=== PATIENT | female | born 1985 | race Caucasian/White ===

== ENCOUNTER 2018-04-30 09:08 | Emergency (ER) | payer SELFPAY ==
[2018-04-30 11:23] LABS: Urine Blood TRACE (NEG); Urine Glucose NEGATIVE (NEG); Urine Protein NEGATIVE (NEG)
[2018-04-30 11:23] LABS: Urine Bacteria <20 /HPF (<20); Urine Culture Reflex Order NOT NEEDED; Urine RBC <5 /HPF (NONE SEEN)
--- NOTE | 2018-04-30 11:46 | ER ---
Nurse's Notes [facility] Name: Lianna Paiz Age: 32 yrs Sex: Female : 1985 Arrival Date: 04/30/2018 Time: 09:11 Bed 17 Private MD: None, None Diagnosis: Pelvic pressure Presentation: 04/30 09:25 Presenting complaint: Patient states: Since I ended by period, My pelvis feels like ss it's bruised. Pt denies injury. Pt also states, "I know that maybe my control has malfunctioned, I was going to make an appointment, but I just came here." pt reports she has had her IUD in for five years. Transition of care: patient was not received from another setting of care. Onset of symptoms was April 28, 2018. Risk Assessment: Do you want to hurt yourself or someone else? Patient reports no desire to harm self or others. Initial Sepsis Screen: Does the patient meet any 2 criteria? No. Patient's initial sepsis screen is negative. Does the patient have a suspected source of infection? No. Patient's initial sepsis screen is negative. Care prior to arrival: None. 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 - Social history:: Smoking status: Patient uses tobacco products, smokes one-half pack cigarettes per day. - Ebola Screening: : Patient denies exposure to infectious person Patient denies travel to an Ebola-affected area in the 21 days before illness onset. Screenin:25 Abuse screen: Denies threats or abuse. Denies injuries from another. Nutritional sv screening: No deficits noted. Tuberculosis screening: No symptoms or risk factors identified. Fall Risk None identified. Assessment: 09:24 Reassessment: Pt attempted to provide urine sample, but was unsuccessful. ss 09:25 General: Appears in no apparent distress. uncomfortable, Behavior is calm, cooperative, sv appropriate for age. Pain: Complains of pain in pelvis Pain currently is 5 out of 10 on a pain scale. Is continuous. Neuro: Level of Consciousness is awake, alert, obeys commands, Oriented to person, place, time, situation, Moves all extremities. Full function Gait is steady, Speech is normal. Respiratory: Respiratory effort is even, unlabored, Respiratory pattern is regular, symmetrical. Derm: Skin is pink, warm \\T\\ dry. Musculoskeletal: Range of motion: intact in all extremities. 11:53 Reassessment: Patient appears in no apparent distress at this time. Patient and/or sv family updated on plan of care and expected duration. Pain level reassessed. Patient is alert, oriented x 3, equal unlabored respirations, skin warm/dry/pink. 12:19 Reassessment: Patient appears in no apparent distress at this time. No changes from previously documented assessment. Patient and/or family updated on plan of care and expected duration. Pain level reassessed. Patient is alert, oriented x 3, equal unlabored respirations, skin warm/dry/pink. Vital Signs: 09:27 BP 147 / 90; Pulse 81; Resp 16; Temp 98.2(TE); Pulse Ox 98% on R/A; Weight 68.04 kg; ss Height 5 ft. 0 in. (152.40 cm); Pain 5/10; 10:06 BP 146 / 95; Pulse 80; Resp 18; Pulse Ox 99% ; sv 11:46 BP 100 / 72; Pulse 71; Resp 18; Pulse Ox 98% ; sv 09:27 Body Mass Index 29.29 (68.04 kg, 152.40 cm) ED Course: 09:11 Patient arrived in ED. sb2 09:12 None, None is Private Physician. sb2 09:18 Ritu Goncalves [facility]-C [facility]. snw 09:18 Jakub Cardenas MD is Attending Physician. snw 09:20 Lula Galicia, GLEN is Primary Nurse. sv 09:25 Patient has correct armband on for positive identification. Bed in low position. Call sv light in reach. Side rails up X 1. Pulse ox on. NIBP on. Door closed. Head of bed elevated. 09:27 Triage completed. ss 09:27 Arm band placed on right wrist. ss 10:28 Urine collected: clean catch specimen, cloudy. dh3 11:42 Imani Deutsch MD is Referral Physician. snw 12:19 No provider procedures requiring assistance completed. Patient did not have IV access sv during this emergency room visit. 19:18 Primary Nurse role handed off by Lula Galicia RN sv Administered Medications: 11:53 Drug: TORadol 60 mg Route: IM; Site: left gluteus; sv 12:19 Follow up: Response: No adverse reaction sv Outcome: 11:46 Discharge ordered by MD. snw 12:19 Discharged to home ambulatory. sv 12:19 Condition: stable 12:19 Discharge instructions given to patient, Instructed on discharge instructions, follow up and referral plans. medication usage, Demonstrated understanding of instructions, follow-up care, medications, Prescriptions given X 1. 12:20 Patient left the ED. sv Signatures: Lula Galicia RN RN sv Therrien, Shelly, SUBSTITUTE CROSSING GUARD-C SUBSTITUTE CROSSING GUARD-Csnw Bibi Valedz RN RN Chanelle Chavez 3 Malissa Reza 2
--- NOTE | 2018-04-30 11:46 | EDPHYS ---
Physician Documentation [facility] Name: Lianna Paiz Age: 32 yrs Sex: Female : 1985 Arrival Date: 04/30/2018 Time: 09:11 Bed 17 Private MD: None, None ED Physician Jakub Cardenas HPI: 04/30 10:18 This 32 yrs old Female presents to ER via Ambulatory with complaints of snw Pelvic Pain. 10:18 The patient presents with pelvic pressure. Onset: The symptoms/episode began/occurred snw suddenly, 4 day(s) ago, and became persistent. Associated signs and symptoms: The patient has no apparent associated signs or symptoms. Severity of symptoms: At their worst the symptoms were moderate. The patient's method of control includes IUD. The patient has experienced a previous episode, last year. The patient has not recently seen a physician. 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 - Social history:: Smoking status: Patient uses tobacco products, smokes one-half pack cigarettes per day. - Ebola Screening: : Patient denies exposure to infectious person Patient denies travel to an Ebola-affected area in the 21 days before illness onset. ROS: 10:16 Constitutional: Negative for fever, chills, and weight loss, Eyes: Negative for injury, snw pain, redness, and discharge, ENT: Negative for injury, pain, and discharge, Neck: Negative for injury, pain, and swelling, Cardiovascular: Negative for chest pain, palpitations, and edema, Respiratory: Negative for shortness of breath, cough, wheezing, and pleuritic chest pain, Abdomen/GI: Negative for abdominal pain, nausea, vomiting, diarrhea, and constipation, Back: Negative for injury and pain, : Negative for injury, bleeding, discharge, and swelling, + pelvic "soreness", pressure since the cessation of menses Saturday. Pt states she needs IUD withdrawn MS/Extremity: Negative for injury and deformity, Skin: Negative for injury, rash, and discoloration, Neuro: Negative for headache, weakness, numbness, tingling, and seizure. Exam: 10:15 Constitutional: This is a well developed, well nourished patient who is awake, alert, snw and in no acute distress. Head/Face: Normocephalic, atraumatic. Eyes: Pupils equal round and reactive to light, extra-ocular motions intact. Lids and lashes normal. Conjunctiva and sclera are non-icteric and not injected. Cornea within normal limits. Periorbital areas with no swelling, redness, or edema. Neck: Trachea midline, no thyromegaly or masses palpated, and no cervical lymphadenopathy. Supple, full range of motion without nuchal rigidity, or vertebral point tenderness. No Meningismus. Chest/axilla: Normal chest wall appearance and motion. Nontender with no deformity. No lesions are appreciated. Cardiovascular: Regular rate and rhythm with a normal S1 and S2. No gallops, murmurs, or rubs. Normal PMI, no JVD. No pulse deficits. Respiratory: Lungs have equal breath sounds bilaterally, clear to auscultation and percussion. No rales, rhonchi or wheezes noted. No increased work of breathing, no retractions or nasal flaring. Abdomen/GI: Soft, non-tender, with normal bowel sounds. No distension or tympany. No guarding or rebound. No evidence of tenderness throughout. Back: No spinal tenderness. No costovertebral tenderness. Full range of motion. Skin: Warm, dry with normal turgor. Normal color with no rashes, no lesions, and no evidence of cellulitis. MS/ Extremity: Pulses equal, no cyanosis. Neurovascular intact. Full, normal range of motion. Neuro: Awake and alert, GCS 15, oriented to person, place, time, and situation. Cranial nerves II-XII grossly intact. Motor strength 5/5 in all extremities. Sensory grossly intact. Cerebellar exam normal. Normal gait. 10:15 ENT: Dental exam: missing teeth. Vital Signs: 09:27 BP 147 / 90; Pulse 81; Resp 16; Temp 98.2(TE); Pulse Ox 98% on R/A; Weight 68.04 kg; ss Height 5 ft. 0 in. (152.40 cm); Pain 5/10; 10:06 BP 146 / 95; Pulse 80; Resp 18; Pulse Ox 99% ; sv 11:46 BP 100 / 72; Pulse 71; Resp 18; Pulse Ox 98% ; sv 09:27 Body Mass Index 29.29 (68.04 kg, 152.40 cm) ss MDM: 09:19 Patient medically screened. snw 11:47 Data reviewed: vital signs, nurses notes. Data interpreted: Pulse oximetry: on room air snw is 98 %. Interpretation: normal. Counseling: I had a detailed discussion with the patient and/or guardian regarding: the historical points, exam findings, and any diagnostic results supporting the discharge/admit diagnosis, lab results, the need for outpatient follow up, for definitive care, to return to the emergency department if symptoms worsen or persist or if there are any questions or concerns that arise at home. Special discussion: Based on the history and exam findings, there is no indication for further emergent testing or inpatient evaluation. I discussed with the patient/guardian the need to see the OB Gyne specialist for further evaluation of the symptoms. 04/30 09:20 Order name: Urine Culture snw 04/30 09:20 Order name: Urine Microscopic Only; Complete Time: 11:41 snw 04/30 09:20 Order name: Urine Test (obtain specimen); Complete Time: 10:26 snw 04/30 11:16 Order name: Urine Dipstick--Ancillary (enter results); Complete Time: 11:41 ss 04/30 11:16 Order name: Urine --Ancillary (enter results); Complete Time: 11:41 ss 04/30 09:20 Order name: Urine Dipstick-Ancillary (obtain specimen); Complete Time: 10:26 snw Administered Medications: 11:53 Drug: TORadol 60 mg Route: IM; Site: left gluteus; sv 12:19 Follow up: Response: No adverse reaction sv Disposition: 04/30/18 11:46 Discharged to Home. Impression: Pelvic pressure. - Condition is Stable. - Discharge Instructions: Pelvic Pain, Female, Pelvic Rest, Pelvic Organ Prolapse. - Prescriptions for Diclofenac Sodium 75 mg Oral Tablet Sustained Release - take 1 tablet by ORAL route 2 times per day; 30 tablet. - Work release form, Medication Reconciliation Form, Thank You Letter, Antibiotic Education, Prescription Opioid Use form. - Follow up: Imani Deutsch MD; When: 1 - 2 days; Reason: Recheck today's complaints, Continuance of care. Addendum: 05/02/2018 14:42 Co-signature as Attending Physician, Jakub Cardenas MD I agree with the assessment and w a plan of care. Signatures: Dispatcher [employer] Lula Hernandez, RN RN Ritu Dan, RESOLUTION SPECIALIST-C RESOLUTION SPECIALIST-Csnw Bibi Valdez RN RN ss Appiah, William, MD MD wa Corrections: (The following items were deleted from the chart) 04/30 12:20 11:46 04/30/2018 11:46 Discharged to Home. Impression: Pelvic pressure. Condition is sv Stable. Forms are Medication Reconciliation Form, Thank You Letter, Antibiotic Education, Prescription Opioid Use. Follow up: Imani Deutsch; When: 1 - 2 days; Reason: Recheck today's complaints, Continuance of care. snw
[2018-04-30] MEDS ORDERED: KETOROLAC 30 MG/ML INJ ONE (11:52)
[2018-04-30 13:30] VITALS: TEMP 98.2
[2018-04-30 13:31] VITALS: BP 146/95; O2SAT 99
== END 2018-04-30 12:20 | disposition home or self-care (01) ==
LOC: ER 09:08
DX: R10.2 Pelvic and perineal pain (principal); F17.210 Nicotine dependence, cigarettes, uncomplicated
CPT/HCPCS: 81003; 81015; 81025; 87086; 87088; 96372; 99284

== ENCOUNTER 2018-07-10 10:10 | Emergency (ER) | payer SELFPAY ==
[2018-07-10 11:59] LABS: BUN Blood Urea Nitrogen 7 mg/dL (7-18); Bicarbonate 31 mmol/L (21-32); Glucose Level 118 mg/dL (74-106); Potassium 3.2 mmol/L (3.5-5.1); Sodium Level 139 mmol/L (136-145)
--- NOTE | 2018-07-10 12:19 | RAD REPORT ---
EXAM DESCRIPTION: US - Transvaginal Study Probe - 07/10/2018 11:14 am CLINICAL HISTORY: pelvic pain Pelvic pain. COMPARISON: TRANSVAGINAL STUDY PROBE dated 12/10/2012 FINDINGS: The uterus is normal in size, shape and echotexture. The uterus measures 11.6 x 6.4 x 4.5 cm The endometrial stripe measures 4 mm, normal in thickness with IUD in the fundal endometrium. Both ovaries are normal in size, shape and echotexture. The right ovary measures 2.7 x 2.0 x 1.7 cm. The left ovary measures 3.7 x 3.1 x 2.9 cm. No ovarian or parovarian lesions. No adnexal masses. Normal Doppler blood flow was demonstrated to both ovaries. No significant pelvic ascites. IMPRESSION: Appropriate placement of IUD in the fundal endometrium is noted.Otherwise, negative stud y.
[2018-07-10 12:26] LABS: Absolute Lymphocytes (CBC) 1.3 K/uL (0.7-4.9); Absolute Monocytes 0.8 K/uL (0.1-1.3); Absolute Neutrophil 11.3 K/uL (1.8-8.0); Basophils % 0.4 % (0-1.3); Eosinophils % 1.3 % (0-4.4); Hematocrit 39.5 % (36.0-45.0); Lymphocytes % 9.7 % (15.3-44.8); MCH 31.7 pg (27.0-35.0); MCV 92.1 fL (80-100); MPV 8.2 fL (7.6-11.3); RBC Red Blood Cell Count 4.29 M/uL (3.86-4.86)
[2018-07-10] MEDS ORDERED: POTASSIUM CL SA 10 MEQ TAB PO ONE (12:42)
[2018-07-10 12:59] LABS: Urine Blood TRACE (NEG); Urine Glucose NEGATIVE (NEG); Urine Protein NEGATIVE (NEG); Urine Specific Gravity 1.015 (1.005-1.030)
[2018-07-10 13:05] LABS: Urine Bacteria >50 /HPF (<20); Urine Culture Reflex Order NOT NEEDED
--- NOTE | 2018-07-10 13:10 | RAD REPORT ---
EXAM DESCRIPTION: CTAbdomen Pelvis W Contrast - 07/10/2018 12:55 pm CLINICAL HISTORY: Abdominal pain. iv only;Abd pain COMPARISON: Transvaginal Study Probe dated 07/10/2018; CT ABDOMEN PELVIS WO CONTRAST dated 08/28/2012 TECHNIQUE: Biphasic CT imaging of the abdomen and pelvis was performed with 100 ml non-ionic IV cont rast. All CT scans are performed using dose optimization technique as appropriate and may include automated exposure control or mA/KV adjustment according to patient size. FINDINGS: The lung bases are clear. The liver contains no focal mass or biliary dilatation. The spleen contains a circumscribed low-densi ty lesion measuring 4 cm, probably a cyst. The pancreas and adrenal glands are normal. No bowel obstruction identified. No free air is present. The appendix is normal. IUD is in place. Large amount of inflammatory changes present in the pelvis surrounding the the lower uterine segment/ cervix as well as the rectum. Moderate bilateral hydronephrosis and hydroureter is present. Mildly prominent retroperitoneal lymph nodes are present bilaterally. Mild adenopathy in both pelvic sidewalls and inguinal region noted. IMPRESSION: Large amount of pelvic inflammatory changes are present surrounding both the lower uteri ne segment/ cervix as well as the rectum. The inflammatory changes result in the moderate bilateral h ydronephrosis and hydroureter. The source for this significant inflammation may be the gynecologic st ructures or the rectum. Advise correlation with clinical exam findings in the region.
[2018-07-10] MEDS ORDERED: AZITHROMYCIN 250 MG TAB ONE (13:36)
[2018-07-10] MEDS ORDERED: CEFTRIAXONE/SWI 1gm 1 GM/10 ML SYR ONE (13:37)
--- NOTE | 2018-07-10 13:53 | ER ---
Nurse's Notes [facility] Name: Lianna Paiz Age: 32 yrs Sex: Female : 1985 Arrival Date: 07/10/2018 Time: 10:14 Bed 19 Private MD: None, None Diagnosis: Female pelvic inflammatory disease, unspecified Presentation: 07/10 10:16 Presenting complaint: Patient states: She has been having lower abdominal pain for the aj1 last 3 months. She believes that it is because of her IUD, reports that when she lays a particular way she can feel her IUD poking her. States that she was suppose to have the IUD taken out 3 years ago, but did not because she couldn't afford to follow up. Reports nausea, denies V/D. Reports more vaginal discharge than is normal for her. Transition of care: patient was not received from another setting of care. Onset of symptoms was March 2018. Risk Assessment: Do you want to hurt yourself or someone else? Patient reports no desire to harm self or others. Initial Sepsis Screen: Does the patient meet any 2 criteria? No. Patient's initial sepsis screen is negative. Does the patient have a suspected source of infection? Yes: Other: vaginal discharge. Care prior to arrival: None. 10:16 Method Of Arrival: Ambulatory aj1 10:16 Acuity: HANNAH 3 aj1 Triage Assessment: 10:20 General: Appears in no apparent distress. uncomfortable, Behavior is calm, cooperative, aj1 appropriate for age. Pain: Complains of pain in suprapubic area, right lower quadrant and left lower quadrant Pain currently is 10 out of 10 on a pain scale. Quality of pain is described as sharp, stabbing, Pain began 3 months ago Is intermittent. Neuro: Level of Consciousness is awake, alert, obeys commands. Cardiovascular: Patient's skin is warm and dry. Respiratory: Airway is patent Respiratory effort is even, unlabored, Respiratory pattern is regular, symmetrical. GI: Reports nausea, Patient currently denies diarrhea, vomiting. : Reports an increase in the amount of vaginal discharge she has had. Derm: Skin is pink, warm \T\ dry. normal. 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 - Social history:: Smoking status: Patient uses tobacco products, smokes one-half pack cigarettes per day. - Ebola Screening: : Patient denies travel to an Ebola-affected area in the 21 days before illness onset. Screenin:25 Abuse screen: Denies threats or abuse. Nutritional screening: No deficits noted. rb1 Tuberculosis screening: No symptoms or risk factors identified. Fall Risk None identified. Assessment: 10:25 General: Appears in no apparent distress. comfortable, Behavior is calm, cooperative. rb1 Pain: Complains of pain in left lower quadrant and right lower quadrant and suprapubic area Pain currently is 10 out of 10 on a pain scale. Pain began x 3 months. Pain: Aggravated by painful sexual intercourse. Neuro: Level of Consciousness is awake, alert, obeys commands, Oriented to person, place, time, situation. Cardiovascular: Capillary refill < 3 seconds is brisk in bilateral fingers. Respiratory: Airway is patent Respiratory effort is even, unlabored, Respiratory pattern is regular, symmetrical. : Reports discharge, white, yellow, Thick, itching. 10:25 General: Denies fever. Pain:. GI: Bowel sounds present X 4 quads. Abd is soft Abdomen rb1 is tender to palpation in suprapubic area, right lower quadrant and left lower quadrant. : Reports burning with urination, x 3 months vaginal itching. Derm: Skin is pink, warm \T\ dry. Musculoskeletal: Range of motion: intact in all extremities. 10:25 General: Reports Has had the Mirena in x 7 years, was suppose to have it removed 3 rb1 years ago. 11:20 Reassessment: Patient appears in no apparent distress at this time. Patient and/or rb1 family updated on plan of care and expected duration. Pain level reassessed. Patient is alert, oriented x 3, equal unlabored respirations, skin warm/dry/pink. 12:20 Reassessment: Patient appears in no apparent distress at this time. No changes from rb1 previously documented assessment. 12:46 Reassessment: Pt. is going to CT. rb1 13:38 Reassessment: Patient appears in no apparent distress at this time. Patient and/or rb1 family updated on plan of care and expected duration. Pain level reassessed. Patient is alert, oriented x 3, equal unlabored respirations, skin warm/dry/pink. Vital Signs: 10:20 BP 102 / 86; Pulse 88; Resp 16; Temp 98.8(TE); Pulse Ox 99% on R/A; Weight 65.77 kg aj1 (R); Height 5 ft. 0 in. (152.40 cm) (R); Pain 10/10; 11:20 BP 121 / 85; Pulse 85; Resp 17; Pulse Ox 97% on R/A; rb1 12:20 BP 114 / 66; Pulse 78; Resp 16; Pulse Ox 99% on R/A; rb1 13:20 BP 117 / 72; Pulse 71; Resp 16; Pulse Ox 100% on R/A; rb1 10:20 Body Mass Index 28.32 (65.77 kg, 152.40 cm) aj1 ED Course: 10:14 Patient arrived in ED. sb2 10:14 None, None is Private Physician. sb2 10:19 Triage completed. aj1 10:20 Arm band placed on Patient placed in an exam room. aj1 10:23 Jeffrey Levin PA is PHCP. jr8 10:23 Donnie Vasquez MD is Attending Physician. jr8 10:25 Patient has correct armband on for positive identification. Placed in gown. Bed in low rb1 position. Call light in reach. Side rails up X 1. Pulse ox on. NIBP on. Warm blanket given. 10:34 Amarilys Dodson, RN is Primary Nurse. rb1 10:50 Inserted saline lock: 22 gauge in right antecubital area, using aseptic technique. rb1 Blood collected. 11:14 US Transvaginal Study (Probe) In Process Unspecified. EDMS 12:40 Urine collected: clean catch specimen, clear, sydin colored, Amount Voided: 70mL. jp3 12:51 Urine Microscopic Only Sent. jp3 12:52 CT completed. Patient tolerated procedure well. Patient moved to CT via wheelchair. sj Patient moved back from CT. 12:55 CT Abd/Pelvis - W/Contrast In Process Unspecified. EDMS 14:12 No provider procedures requiring assistance completed. IV discontinued, intact, rb1 bleeding controlled, No redness/swelling at site. Pressure dressing applied. 14:24 GC (GONORR/CHLAMYDIA) Probe Sent. rb1 14:24 Wet Prep Sent. rb1 Administered Medications: 12:37 Drug: Potassium Chloride 40 mEq Route: PO; rb1 13:15 Follow up: Response: No adverse reaction rb1 13:35 Drug: Zithromax 1 grams Route: PO; rb1 14:00 Follow up: Response: No adverse reaction rb1 13:35 Drug: Rocephin 1 grams Route: IV; Rate: calculated rate; Site: right antecubital; rb1 14:00 Follow up: Response: No adverse reaction; IV Status: Completed infusion rb1 Outcome: 13:53 Discharge ordered by . kristina 14:12 Discharged to home ambulatory. rb1 14:12 Condition: stable 14:12 Discharge instructions given to patient, Instructed on discharge instructions, follow up and referral plans. medication usage, Demonstrated understanding of instructions, follow-up care, medications, Prescriptions given X 2. 14:25 Patient left the ED. rb1 Signatures: Dispatcher [employer] EDMS Abbey Demarco RN RN aj1 Lexie Mckinley Josh, PA PA jr8 Amarilys Dodson, RN RN rb1 Malissa Reza sb2 Yusef Yousif jp3
--- NOTE | 2018-07-10 13:53 | EDPHYS ---
Physician Documentation [facility] Name: Lianna Paiz Age: 32 yrs Sex: Female : 1985 Arrival Date: 07/10/2018 Time: 10:14 Bed 19 Private MD: None, None ED Physician Donnie Vasquez HPI: 07/10 11:24 This 32 yrs old Female presents to ER via Ambulatory with complaints of jr8 Abdominal Pain. 11:24 The patient presents with abdominal pain. Onset: The symptoms/episode began/occurred jr8 gradually, 3 month(s) ago. The symptoms do not radiate. Associated signs and symptoms: none. The symptoms are described as sharp. Modifying factors: The symptoms are alleviated by nothing, the symptoms are aggravated by movement, sexual intercourse . Severity of pain: At its worst the pain was mild in the emergency department the pain is unchanged. The patient has not experienced similar symptoms in the past. The patient has not recently seen a physician. 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 - Social history:: Smoking status: Patient uses tobacco products, smokes one-half pack cigarettes per day. - Ebola Screening: : Patient denies travel to an Ebola-affected area in the 21 days before illness onset. ROS: 11:24 Eyes: Negative for injury, pain, redness, and discharge, ENT: Negative for injury, jr8 pain, and discharge, Neck: Negative for injury, pain, and swelling, Cardiovascular: Negative for chest pain, palpitations, and edema, Respiratory: Negative for shortness of breath, cough, wheezing, and pleuritic chest pain, Back: Negative for injury and pain, MS/Extremity: Negative for injury and deformity, Skin: Negative for injury, rash, and discoloration, Neuro: Negative for headache, weakness, numbness, tingling, and seizure. 11:24 Abdomen/GI: Positive for abdominal pain, Negative for nausea, vomiting, and diarrhea, abdominal cramps, abdominal distension, anorexia, dysphagia, hematemesis, black/tarry stool, rectal pain, rectal bleeding, bowel incontinence, flatulence. Exam: 11:24 Eyes: Pupils equal round and reactive to light, extra-ocular motions intact. Lids and jr8 lashes normal. Conjunctiva and sclera are non-icteric and not injected. Cornea within normal limits. Periorbital areas with no swelling, redness, or edema. ENT: Nares patent. No nasal discharge, no septal abnormalities noted. Tympanic membranes are normal and external auditory canals are clear. Oropharynx with no redness, swelling, or masses, exudates, or evidence of obstruction, uvula midline. Mucous membranes moist. Neck: Trachea midline, no thyromegaly or masses palpated, and no cervical lymphadenopathy. Supple, full range of motion without nuchal rigidity, or vertebral point tenderness. No Meningismus. Cardiovascular: Regular rate and rhythm with a normal S1 and S2. No gallops, murmurs, or rubs. Normal PMI, no JVD. No pulse deficits. Respiratory: Lungs have equal breath sounds bilaterally, clear to auscultation and percussion. No rales, rhonchi or wheezes noted. No increased work of breathing, no retractions or nasal flaring. Back: No spinal tenderness. No costovertebral tenderness. Full range of motion. Skin: Warm, dry with normal turgor. Normal color with no rashes, no lesions, and no evidence of cellulitis. MS/ Extremity: Pulses equal, no cyanosis. Neurovascular intact. Full, normal range of motion. Neuro: Awake and alert, GCS 15, oriented to person, place, time, and situation. Cranial nerves II-XII grossly intact. Motor strength 5/5 in all extremities. Sensory grossly intact. Cerebellar exam normal. Normal gait. 11:24 Abdomen/GI: Inspection: abdomen appears normal, Bowel sounds: active, all quadrants, Palpation: soft, in all quadrants, mild abdominal tenderness, in the lower pelvic region, mass, is not appreciated, rebound tenderness, is not appreciated, voluntary guarding, is not appreciated, involuntary guarding, is not appreciated, no appreciated organomegaly, Rectal exam: rectal tone normal, Stool: brown, hemorrhoid(s), are not appreciated, mass, is not appreciated, swelling, is not appreciated, tenderness, that is mild, the exam is chaperoned by the nurse, Indicators: McBurney's point is not tender, Reed's sign is negative, Rovsing's sign is negative, Liver: no appreciated palpable abnormalities, tenderness, is not appreciated. 13:52 : Pelvic Exam: External exam: is normal, Speculum exam: cervicitis present, os that jr8 is closed, no tissue in cervix is seen, no tissue in vagina is seen, bimanual exam reveals cervical motion tenderness, os that is closed, uterine tenderness, right adnexal tenderness, left adnexal tenderness, a female cardiologist was present for the exam. Vital Signs: 10:20 BP 102 / 86; Pulse 88; Resp 16; Temp 98.8(TE); Pulse Ox 99% on R/A; Weight 65.77 kg aj1 (R); Height 5 ft. 0 in. (152.40 cm) (R); Pain 10/10; 11:20 BP 121 / 85; Pulse 85; Resp 17; Pulse Ox 97% on R/A; rb1 12:20 BP 114 / 66; Pulse 78; Resp 16; Pulse Ox 99% on R/A; rb1 13:20 BP 117 / 72; Pulse 71; Resp 16; Pulse Ox 100% on R/A; rb1 10:20 Body Mass Index 28.32 (65.77 kg, 152.40 cm) aj1 MDM: 10:23 Patient medically screened. jr8 13:51 Data reviewed: vital signs, nurses notes, lab test result(s), radiologic studies, CT jr8 scan, ultrasound, and as a result, I will discharge patient. Data interpreted: Pulse oximetry: on room air is 99 %. Interpretation: normal. Counseling: I had a detailed discussion with the patient and/or guardian regarding: the historical points, exam findings, and any diagnostic results supporting the discharge/admit diagnosis, lab results, radiology results, the need for outpatient follow up, an OB/Gyne specialist, to return to the emergency department if symptoms worsen or persist or if there are any questions or concerns that arise at home. ED course: No rectal inflammation or mass. Cervical discharge and tenderness. Likely PID. Will f/u with Gynecology . 07/10 10:43 Order name: CBC with Diff; Complete Time: 12:31 jr8 07/10 10:43 Order name: Basic Metabolic Panel; Complete Time: 12:02 jr8 07/10 12:49 Order name: Urine Microscopic Only; Complete Time: 13:19 07/10 12:53 Order name: Urine Dipstick--Ancillary (enter results); Complete Time: 13:02 07/10 12:53 Order name: Urine --Ancillary (enter results); Complete Time: 13:02 07/10 14:16 Order name: Wet Prep 07/10 10:43 Order name: Urine Test (obtain specimen); Complete Time: 12:50 07/10 10:43 Order name: Urine Dipstick-Ancillary (obtain specimen); Complete Time: 12:50 07/10 10:43 Order name: US Transvaginal Study (Probe); Complete Time: 12:24 [facility] 07/10 12:32 Order name: CT Abd/Pelvis - W/Contrast; Complete Time: 13:19 07/10 14:16 Order name: GC (GONORR/CHLAMYDIA) Probe 07/10 10:43 Order name: IV; Complete Time: 12:21 [facility] 07/10 12:24 Order name: Pelvic Exam Setup; Complete Time: 13:38 jr Administered Medications: 12:37 Drug: Potassium Chloride 40 mEq Route: PO; rb1 13:15 Follow up: Response: No adverse reaction rb1 13:35 Drug: Zithromax 1 grams Route: PO; rb1 14:00 Follow up: Response: No adverse reaction rb1 13:35 Drug: Rocephin 1 grams Route: IV; Rate: calculated rate; Site: right antecubital; rb1 14:00 Follow up: Response: No adverse reaction; IV Status: Completed infusion rb1 Disposition: 16:50 Co-signature as Attending Physician, Donnie Vasquez MD. rn Disposition: 07/10/18 13:53 Discharged to Home. Impression: Female pelvic inflammatory disease, unspecified. - Condition is Stable. - Discharge Instructions: Pelvic Inflammatory Disease. - Prescriptions for Flagyl 500 mg Oral Tablet - take 1 tablet by ORAL route every 12 hours for 14 days; 28 tablet. Doxycycline Monohydrate 100 mg Oral Tablet - take 1 tablet by ORAL route every 12 hours for 14 days; 28 tablet. - Medication Reconciliation Form, Thank You Letter, Antibiotic Education, Prescription Opioid Use, Work release form form. - Follow up: Private Physician; When: 2 - 3 days; Reason: Recheck today's complaints, Continuance of care, Re-evaluation by your physician. - Problem is new. - Symptoms have improved. Signatures: Dispatcher [employer] EDMS Abbey Demarco RN RN aj1 Donnie Vasquez MD MD rn Roszak, Josh, PA PA jr8 Amarilys Dodson, RN RN rb1 Corrections: (The following items were deleted from the chart) 13:52 11:24 Abdomen/GI: Inspection: abdomen appears normal, Bowel sounds: active, all jr8 quadrants, Palpation: soft, in all quadrants, mild abdominal tenderness, in the lower pelvic region, mass, is not appreciated, rebound tenderness, is not appreciated, voluntary guarding, is not appreciated, involuntary guarding, is not appreciated, no appreciated organomegaly, Indicators: McBurney's point is not tender, Reed's sign is negative, Rovsing's sign is negative, Liver: no appreciated palpable abnormalities, tenderness, is not appreciated, jr8 14:25 13:53 07/10/2018 13:53 Discharged to Home. Impression: Female pelvic inflammatory rb1 disease, unspecified. Condition is Stable. Forms are Medication Reconciliation Form, Thank You Letter, Antibiotic Education, Prescription Opioid Use. Follow up: Private Physician; When: 2 - 3 days; Reason: Recheck today's complaints, Continuance of care, Re-evaluation by your physician. Problem is new. Symptoms have improved. jr8
[2018-07-10 14:29] VITALS: TEMP 98.8
[2018-07-10 14:32] VITALS: BP 117/72; O2SAT 100
[2018-07-12 04:47] LABS: C.trachomatis RNA,TMA Not Detected (Not Detected)
== END 2018-07-10 14:25 | disposition home or self-care (01) ==
LOC: ER 10:10
DX: N73.9 Female pelvic inflammatory disease, unspecified (principal); Z72.0 Tobacco use
CPT/HCPCS: 36415; 74177; 76830; 80048; 81003; 81015; 81025; 85025; 87210; 87490; 87590; 96365; 99284; J0696; Q9967

== ENCOUNTER 2019-09-10 10:44 | Emergency (ER) | payer SELFPAY ==
--- NOTE | 2019-09-10 11:14 | EDPHYS ---
Physician Documentation [facility] Name: Lianna Paiz Age: 33 yrs Sex: Female : 1985 Arrival Date: 09/10/2019 Time: 10:47 Bed 12 Private MD: Jakub Watt E ED Physician Stefan Ortiz HPI: 09/10 11:00 This 33 yrs old Female presents to ER via Ambulatory with complaints of Jaw kb Pain, Ear Pain. 11:01 The patient presents with pain. The problem is located in the right jaw. Onset: The kb symptoms/episode began/occurred 2 week(s) ago. Duration: The symptoms are continuous. Modifying factors: The symptoms are alleviated by nothing, the symptoms are aggravated by eating and drinking. Associated signs and symptoms: Pertinent positives: fever. Severity of symptoms: At their worst the symptoms were moderate, in the emergency department the symptoms are unchanged. The patient has not experienced similar symptoms in the past. The patient has not recently seen a physician. Pt reports right jaw pain that radiates to right ear for 2 weeks. States pain is increased with eating and drinking. Pt able to talk and open mouth wide without difficulty. States she went to [facility] and was told it was sinuses so she has been taking sinus medication without relief. Reports fever daily. . Historical: - Allergies: 10:53 No Known Allergies; hb - Home Meds: 10:53 None [Active]; hb - PMHx: 10:53 None; hb - PSHx: 10:53 ; hb - Immunization history:: Adult Immunizations up to date. - Social history:: Smoking status: Patient uses tobacco products, smokes one-half pack cigarettes per day. - Ebola Screening: : No symptoms or risks identified at this time. ROS: 11:07 Constitutional: Negative for fever, chills, and weight loss, Neck: Negative for injury, kb pain, and swelling, Cardiovascular: Negative for chest pain, palpitations, and edema, Respiratory: Negative for shortness of breath, cough, wheezing, and pleuritic chest pain, Abdomen/GI: Negative for abdominal pain, nausea, vomiting, diarrhea, and constipation, Back: Negative for injury and pain, MS/Extremity: Negative for injury and deformity, Skin: Negative for injury, rash, and discoloration, Neuro: Negative for headache, weakness, numbness, tingling, and seizure. 11:07 ENT: Positive for dental pain, ear pain, jaw pain. Exam: 11:07 Constitutional: This is a well developed, well nourished patient who is awake, alert, kb and in no acute distress. Head/Face: Normocephalic, atraumatic. Neck: Trachea midline, no thyromegaly or masses palpated, and no cervical lymphadenopathy. Supple, full range of motion without nuchal rigidity, or vertebral point tenderness. No Meningismus. Chest/axilla: Normal chest wall appearance and motion. Nontender with no deformity. No lesions are appreciated. Cardiovascular: Regular rate and rhythm with a normal S1 and S2. No gallops, murmurs, or rubs. Normal PMI, no JVD. No pulse deficits. Respiratory: Lungs have equal breath sounds bilaterally, clear to auscultation and percussion. No rales, rhonchi or wheezes noted. No increased work of breathing, no retractions or nasal flaring. Abdomen/GI: Soft, non-tender, with normal bowel sounds. No distension or tympany. No guarding or rebound. No evidence of tenderness throughout. Skin: Warm, dry with normal turgor. Normal color with no rashes, no lesions, and no evidence of cellulitis. MS/ Extremity: Pulses equal, no cyanosis. Neurovascular intact. Full, normal range of motion. Neuro: Awake and alert, GCS 15, oriented to person, place, time, and situation. Cranial nerves II-XII grossly intact. Motor strength 5/5 in all extremities. Sensory grossly intact. Cerebellar exam normal. Normal gait. 11:07 ENT: External ear(s): are unremarkable, Ear canal(s): are normal, TM's: are normal, Nose: is normal, Mouth: is normal, Dental exam: dental caries, that is moderate, diffusely, pain, that is moderate, specifically in the lower right second bicuspid (#29), lower right first molar (#30) and lower right second molar (#31), tenderness to gums on lower right side and to jaw on outside of mouth. Vital Signs: 10:53 BP 137 / 95; Pulse 71; Resp 16; Temp 97.8; Pulse Ox 100% on R/A; Weight 64.86 kg; hb Height 5 ft. (152.40 cm); Pain 10; 10:53 Body Mass Index 27.93 (64.86 kg, 152.40 cm) hb MDM: 10:55 Patient medically screened. kb 11:06 Data reviewed: vital signs, nurses notes. Data interpreted: Pulse oximetry: on room air kb is 100 %. Interpretation: normal. Counseling: I had a detailed discussion with the patient and/or guardian regarding: the historical points, exam findings, and any diagnostic results supporting the discharge/admit diagnosis, the need for outpatient follow up, a family practitioner, to return to the emergency department if symptoms worsen or persist or if there are any questions or concerns that arise at home. 11:12 ED course: Pt has appt with dentist next week. . kb Administered Medications: No medications were administered Disposition: 09/11 09:05 Co-signature as Attending Physician, Stefan Ortiz MD I agree with the assessment and kdr plan of care. Disposition: 09/10/19 11:13 Discharged to Home. Impression: Periapical abscess without sinus. - Condition is Stable. - Discharge Instructions: Dental Pain, [id number], Dental Abscess, [id number]. - Prescriptions for Augmentin 875- 125 mg Oral Tablet - take 1 tablet by ORAL route every 12 hours for 10 days; 20 tablet. - Medication Reconciliation Form, Thank You Letter, Antibiotic Education, Prescription Opioid Use, Work release form form. - Follow up: Emergency Department; When: As needed; Reason: Worsening of condition. Follow up: Private Physician; When: 2 - 3 days; Reason: Recheck today's complaints, Continuance of care, Re-evaluation by your physician. Signatures: Yoselin Dowell, JAMES-C JAMES-Stefan Meeks MD MD [facility] Mee Montez, GLEN RN iw Alana Keen, GLEN RN Corrections: (The following items were deleted from the chart) 09/10 11:24 11:13 09/10/2019 11:13 Discharged to Home. Impression: Periapical abscess without iw sinus. Condition is Stable. Forms are Medication Reconciliation Form, Thank You Letter, Antibiotic Education, Prescription Opioid Use. Follow up: Emergency Department; When: As needed; Reason: Worsening of condition. Follow up: Private Physician; When: 2 - 3 days; Reason: Recheck today's complaints, Continuance of care, Re-evaluation by your physician. kb
--- NOTE | 2019-09-10 11:14 | ER ---
Nurse's Notes [facility] Name: Lianna Paiz Age: 33 yrs Sex: Female : 1985 Arrival Date: 09/10/2019 Time: 10:47 Bed 12 Private MD: Jakub Watt E Diagnosis: Periapical abscess without sinus Presentation: 09/10 10:52 Presenting complaint: Right ear pain x 2 weeks. Transition of care: patient was not hb received from another setting of care. Onset of symptoms was August 2019. Risk Assessment: Do you want to hurt yourself or someone else? Patient reports no desire to harm self or others. Initial Sepsis Screen: Does the patient meet any 2 criteria? No. Patient's initial sepsis screen is negative. Does the patient have a suspected source of infection? No. Patient's initial sepsis screen is negative. Care prior to arrival: None. 10:52 Method Of Arrival: Ambulatory hb 10:52 Acuity: HANNAH 4 hb Historical: - Allergies: 10:53 No Known Allergies; hb - Home Meds: 10:53 None [Active]; hb - PMHx: 10:53 None; hb - PSHx: 10:53 ; hb - Immunization history:: Adult Immunizations up to date. - Social history:: Smoking status: Patient uses tobacco products, smokes one-half pack cigarettes per day. - Ebola Screening: : No symptoms or risks identified at this time. Vital Signs: 10:53 BP 137 / 95; Pulse 71; Resp 16; Temp 97.8; Pulse Ox 100% on R/A; Weight 64.86 kg; hb Height 5 ft. (152.40 cm); Pain 10/10; 10:53 Body Mass Index 27.93 (64.86 kg, 152.40 cm) hb ED Course: 10:47 Patient arrived in ED. mr 10:47 Jakub Watt MD is Private Physician. mr 10:51 Yoselin Dowell F[facility]-C [facility]. kb 10:51 Stefan Ortiz MD is Attending Physician. kb 10:53 Triage completed. hb 10:53 Arm band placed on. hb 11:14 Mee Montez, RN is Primary Nurse. iw Administered Medications: No medications were administered Outcome: 11:13 Discharge ordered by . kb 11:24 Patient left the ED. iw Signatures: Yoselin Dowell, DARON RAMIREZ-Radha Price mr Mee Montez, RN RN iw Alana Keen, RN RN hb
[2019-09-10 11:30] VITALS: BP 137/95; TEMP 97.8; O2SAT 100
== END 2019-09-10 11:24 | disposition home or self-care (01) ==
LOC: ER 10:44
DX: K04.7 Periapical abscess without sinus (principal)
CPT/HCPCS: 99281

== ENCOUNTER 2020-04-26 13:12 | Emergency (ER) | payer SELFPAY ==
[2020-04-26] MEDS ORDERED: NA CHLORIDE 0.9% 2,000 ML ONE (15:17)
[2020-04-26 15:39] LABS: Absolute Lymphocytes (CBC) 1.9 K/uL (0.7-4.9); Basophils % 0.9 % (0-1.3); Hematocrit 40.2 % (36.0-45.0); Lymphocytes % 22.8 % (15.3-44.8); MPV 8.4 fL (7.6-11.3); RBC Red Blood Cell Count 4.19 M/uL (3.86-4.86)
--- NOTE | 2020-04-26 15:55 | RAD REPORT ---
EXAM DESCRIPTION: RAD - Chest Single View - 04/26/2020 3:42 pm CLINICAL HISTORY: COUGH Chest pain. COMPARISON: CHEST SINGLE VIEW dated 10/04/2014 FINDINGS: Portable technique limits examination quality. The lungs are grossly clear. The heart is normal in size. No displaced fractures.Moderate thoracic de xtroscoliosis. IMPRESSION: No acute intrathoracic process suspected.
[2020-04-26 16:04] LABS: ALT/SGPT 14 U/L (12-78); AST/SGOT 11 U/L (15-37); Albumin 3.5 g/dL (3.4-5.0); Alkaline Phosphatase 71 U/L (45-117); BUN Blood Urea Nitrogen 7 mg/dL (7-18); Bicarbonate 29 mmol/L (21-32); Bilirubin Total 0.6 mg/dL (0.2-1.0); Creatine Phosphokinase 72 U/L (26-192); Glucose Level 94 mg/dL (74-106); Potassium 3.7 mmol/L (3.5-5.1); Protein, Total 7.3 g/dL (6.4-8.2); Sodium Level 143 mmol/L (136-145)
--- NOTE | 2020-04-26 16:22 | EDPHYS ---
Physician Documentation [facility] Name: Lianna Paiz Age: 34 yrs Sex: Female : 1985 Arrival Date: 04/26/2020 Time: 13:14 Bed 19 Private MD: ED Physician Braeden Chatman HPI: 04/26 15:05 This 34 yrs old Female presents to ER via Ambulatory with complaints of marcelle doesnt feel good. 15:05 in the heat, weak, possible dehydration, decreased urine output. Onset: The marcelle symptoms/episode began/occurred 2 day(s) ago. Severity of symptoms: At their worst the symptoms were moderate in the emergency department the symptoms are unchanged. The patient has not experienced similar symptoms in the past. [employer]: 13:23 LMP 04/25/2020 hb Historical: - Allergies: 13:23 No Known Allergies; hb - Home Meds: 13:23 None [Active]; hb - PMHx: 13:23 None; hb - PSHx: 13:23 ; hb - Immunization history:: Adult Immunizations up to date. - Social history:: Smoking status: Patient reports the use of cigarette tobacco products, smokes one-half pack cigarettes per day. ROS: 15:06 Constitutional: Negative for fever, chills, and weight loss, Eyes: Negative for injury, marcelle pain, redness, and discharge, ENT: Negative for injury, pain, and discharge, Neck: Negative for injury, pain, and swelling, Cardiovascular: Negative for chest pain, palpitations, and edema, Respiratory: Negative for shortness of breath, cough, wheezing, and pleuritic chest pain, Back: Negative for injury and pain, : Negative for injury, bleeding, discharge, and swelling, MS/Extremity: Negative for injury and deformity, Skin: Negative for injury, rash, and discoloration, Psych: Negative for depression, anxiety, suicide ideation, homicidal ideation, and hallucinations, Allergy/Immunology: Negative for hives, rash, and allergies, Endocrine: Negative for neck swelling, polydipsia, polyuria, polyphagia, and marked weight changes, Hematologic/Lymphatic: Negative for swollen nodes, abnormal bleeding, and unusual bruising. 15:06 Abdomen/GI: Positive for anorexia. 15:06 Neuro: Positive for weakness. Exam: 15:06 Constitutional: This is a well developed, well nourished patient who is awake, alert, marcelle and in no acute distress. Head/Face: Normocephalic, atraumatic. Eyes: Pupils equal round and reactive to light, extra-ocular motions intact. Lids and lashes normal. Conjunctiva and sclera are non-icteric and not injected. Cornea within normal limits. Periorbital areas with no swelling, redness, or edema. ENT: Nares patent. No nasal discharge, no septal abnormalities noted. Tympanic membranes are normal and external auditory canals are clear. Oropharynx with no redness, swelling, or masses, exudates, or evidence of obstruction, uvula midline. Mucous membranes moist. Neck: Trachea midline, no thyromegaly or masses palpated, and no cervical lymphadenopathy. Supple, full range of motion without nuchal rigidity, or vertebral point tenderness. No Meningismus. Chest/axilla: Normal chest wall appearance and motion. Nontender with no deformity. No lesions are appreciated. Cardiovascular: Regular rate and rhythm with a normal S1 and S2. No gallops, murmurs, or rubs. Normal PMI, no JVD. No pulse deficits. Respiratory: Lungs have equal breath sounds bilaterally, clear to auscultation and percussion. No rales, rhonchi or wheezes noted. No increased work of breathing, no retractions or nasal flaring. Abdomen/GI: Soft, non-tender, with normal bowel sounds. No distension or tympany. No guarding or rebound. No evidence of tenderness throughout. Back: No spinal tenderness. No costovertebral tenderness. Full range of motion. Female : Normal external genitalia. Skin: Warm, dry with normal turgor. Normal color with no rashes, no lesions, and no evidence of cellulitis. MS/ Extremity: Pulses equal, no cyanosis. Neurovascular intact. Full, normal range of motion. Neuro: Awake and alert, GCS 15, oriented to person, place, time, and situation. Cranial nerves II-XII grossly intact. Motor strength 5/5 in all extremities. Sensory grossly intact. Cerebellar exam normal. Normal gait. Psych: Awake, alert, with orientation to person, place and time. Behavior, mood, and affect are within normal limits. Vital Signs: 13:20 BP 122 / 95; Pulse 97; Resp 16; Temp 99.2; Pulse Ox 98% on R/A; Weight 70.31 kg; Height hb 5 ft. (152.40 cm); Pain 9/10; 14:30 BP 135 / 77; Pulse 79; Resp 18; Pulse Ox 99% ; ah 14:36 Temp 98.7; ah 15:30 BP 136 / 75; Pulse 69; Resp 17; Pulse Ox 99% ; ah 16:30 BP 153 / 76; Pulse 72; Resp 16; Pulse Ox 100% ; ah 13:20 Body Mass Index 30.27 (70.31 kg, 152.40 cm) MDM: 14:29 Patient medically screened. [facility] 15:07 Data reviewed: vital signs, nurses notes, lab test result(s), radiologic studies, plain marcelle films. 15:09 Data interpreted: monitoring analyst: rate is 97 beats/min, Pulse oximetry: on room air is marcelle 98 %. Test interpretation: by ED physician or midlevel provider: plain radiologic studies. Counseling: I had a detailed discussion with the patient and/or guardian regarding: the historical points, exam findings, and any diagnostic results supporting the discharge/admit diagnosis, lab results, radiology results, the need for outpatient follow up. 16:20 ED course: weak, heat exposure last few days, moist mm, positive po, will follow up , marcelle return is worse. 16:22 Medication response: 2 liters , much improved. [facility] 04/26 15:04 Order name: CBC with Diff; Complete Time: 16:19 [facility] 04/26 15:04 Order name: Comprehensive Metabolic Panel; Complete Time: 16:19 [facility] 04/26 15:05 Order name: CK; Complete Time: 16:19 [facility] 04/26 15:05 Order name: Chest Single View XRAY [facility] 04/26 16:53 Order name: Urine --Ancillary (enter results) 04/26 16:53 Order name: Urine Dipstick--Ancillary (enter results) 04/26 15:05 Order name: Urine Dipstick-Ancillary (obtain specimen); Complete Time: 16:51 [facility] 04/26 15:05 Order name: Urine Test (obtain specimen); Complete Time: 16:51 [facility] Administered Medications: 15:24 Drug: NS 0.9% 1000 ml Route: IV; Rate: 1 bolus; Site: right antecubital; 15:24 Drug: NS 0.9% 1000 ml Route: IV; Rate: 1 bolus; Site: right antecubital; 16:30 Follow up: Response: No adverse reaction; IV Status: Completed infusion Disposition: 04/26/20 16:21 Discharged to Home. Impression: Heat exhaustion, unspecified, Weakness. - Condition is Stable. - Discharge Instructions: Near-Syncope, Weakness, Fatigue, Near-Syncope, [id number], Heat Exhaustion Information, Weakness, [id number]. - Medication Reconciliation Form, Thank You Letter, Antibiotic Education, Prescription Opioid Use form. - Follow up: Private Physician; When: As needed; Reason: Recheck today's complaints, Continuance of care, Re-evaluation by your physician. - Problem is new. - Symptoms have improved. Signatures: Dispatcher [employer] EDBraeden Souza MD MD cha Baxter, Heather, RN RN Malia Watkins RN RN Corrections: (The following items were deleted from the chart) 17:06 16:21 04/26/2020 16:21 Discharged to Home. Impression: Heat exhaustion, unspecified; Weakness. Condition is Stable. Discharge Instructions: Near-Syncope, Weakness, Fatigue, Near-Syncope, [id number], Weakness, [id number]. Forms are Medication Reconciliation Form, Thank You Letter, Antibiotic Education, Prescription Opioid Use. Follow up: Private Physician; When: As needed; Reason: Recheck today's complaints, Continuance of care, Re-evaluation by your physician. Problem is new. Symptoms have improved. marcelle
--- NOTE | 2020-04-26 16:22 | ER ---
Nurse's Notes [facility] Name: Lianna Paiz Age: 34 yrs Sex: Female : 1985 Arrival Date: 04/26/2020 Time: 13:14 Bed 19 Private MD: Diagnosis: Heat exhaustion, unspecified;Weakness Presentation: 04/26 13:20 Chief complaint: Headache, chills, malaise, and nausea x 2 days. Coronavirus screen: hb Proceed with normal triage. Ebola Screen: No symptoms or risks identified at this time. Initial Sepsis Screen: Does the patient meet any 2 criteria? HR > 90 bpm. No. Patient's initial sepsis screen is negative. Does the patient have a suspected source of infection? No. Patient's initial sepsis screen is negative. Risk Assessment: Do you want to hurt yourself or someone else? Patient reports no desire to harm self or others. Onset of symptoms was April 25, 2020. 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 - Social history:: Smoking status: Patient reports the use of cigarette tobacco products, smokes one-half pack cigarettes per day. Screenin:43 Abuse screen: Denies threats or abuse. Nutritional screening: No deficits noted. Tuberculosis screening: No symptoms or risk factors identified. Fall Risk None identified. Assessment: 14:36 General: Appears in no apparent distress. Behavior is calm, cooperative. General: ah Reports fatigue for. Pain: Denies pain. Neuro: Level of Consciousness is awake, alert, Oriented to person, place, time, situation. Neuro: Reports dizziness. Cardiovascular: Capillary refill < 3 seconds Patient's skin is warm and dry. Respiratory: Airway is patent Respiratory effort is even, unlabored. GI: Reports nausea, Patient currently denies vomiting. Derm: Skin is intact, is healthy with good turgor. 15:30 Reassessment: Patient and/or family updated on plan of care and expected duration. Pain ah level reassessed. Patient is alert, oriented x 3, equal unlabored respirations, skin warm/dry/pink. awaiting on lab results. No needs voiced at this time. 16:30 Reassessment: Discharge instructions given. Pt voiced understanding. Vital Signs: 13:20 BP 122 / 95; Pulse 97; Resp 16; Temp 99.2; Pulse Ox 98% on R/A; Weight 70.31 kg; Height hb 5 ft. (152.40 cm); Pain 9/10; 14:30 BP 135 / 77; Pulse 79; Resp 18; Pulse Ox 99% ; ah 14:36 Temp 98.7; ah 15:30 BP 136 / 75; Pulse 69; Resp 17; Pulse Ox 99% ; ah 16:30 BP 153 / 76; Pulse 72; Resp 16; Pulse Ox 100% ; ah 13:20 Body Mass Index 30.27 (70.31 kg, 152.40 cm) hb ED Course: 13:14 Patient arrived in ED. as 13:22 Triage completed. hb 13:23 Arm band placed on. 13:34 Braeden Chatman MD is Attending Physician. marcelle 14:30 Malia Watkins, RN is Primary Nurse. 14:43 Patient has correct armband on for positive identification. Bed in low position. Call light in reach. Side rails up X 1. Pulse ox on. NIBP on. 15:15 Inserted saline lock: 22 gauge in right antecubital area, using aseptic technique. ah 15:43 Chest Single View XRAY In Process Unspecified. EDMS 16:50 No provider procedures requiring assistance completed. IV discontinued, intact, bleeding controlled, No redness/swelling at site. Pressure dressing applied. Administered Medications: 15:24 Drug: NS 0.9% 1000 ml Route: IV; Rate: 1 bolus; Site: right antecubital; 15:24 Drug: NS 0.9% 1000 ml Route: IV; Rate: 1 bolus; Site: right antecubital; 16:30 Follow up: Response: No adverse reaction; IV Status: Completed infusion ah Outcome: 16:21 Discharge ordered by . marcelle 16:50 Discharged to home ambulatory. 16:50 Condition: good 16:50 Discharge instructions given to patient, Instructed on discharge instructions, follow up and referral plans. Demonstrated understanding of instructions, follow-up care. 17:06 Patient left the ED. Signatures: Dispatcher [employer] Braeden Howard MD MD cha Martinez, Amelia as Baxter, Heather, RN RN hb Harris, Amy, RN RN
[2020-04-26 17:22] VITALS: TEMP 98.7
[2020-04-26 17:24] VITALS: BP 153/76; O2SAT 100
[2020-04-26 19:02] LABS: Urine Blood 2+ (NEG); Urine Glucose NEGATIVE (NEG); Urine Protein 1+ (NEG); Urine Specific Gravity 1.025 (1.005-1.030)
== END 2020-04-26 17:06 | disposition home or self-care (01) ==
LOC: ER 13:12
DX: T67.5XXA Heat exhaustion, unspecified, initial encounter (principal); R63.0 Anorexia; F17.210 Nicotine dependence, cigarettes, uncomplicated
CPT/HCPCS: 36415; 71045; 80053; 81003; 81025; 82550; 85025; 96360; 99284; J7030

== ENCOUNTER 2020-12-25 20:32 | Emergency (ER) | payer SELFPAY ==
[2020-12-25] MEDS ORDERED: ACETAMINOPHEN 500 MG TAB ONE (21:54)
[2020-12-25 22:03] LABS: Urine Blood 3+ (NEG); Urine Glucose NEGATIVE (NEG); Urine Protein NEGATIVE (NEG); Urine Specific Gravity 1.015 (1.005-1.030); Urine pH 6.5 (5.0-7.0)
[2020-12-25 23:01] LABS: SARS-COV-2 RT PCR NEGATIVE (NEGATIVE)
--- NOTE | 2020-12-25 23:21 | ER ---
Nurse's Notes [facility] Name: Lianna Paiz Age: 35 yrs Sex: Female : 1985 Arrival Date: 12/25/2020 Time: 20:37 Bed 24 Private MD: Diagnosis: Viral Syndrome Presentation: 12/25 20:44 Chief complaint: Patient states: Cough, fever, body aches, diarrhea, fever for 10 days. ll1 Coronavirus screen: Client denies travel out of the [place] in the last 14 days. chills, congestion, cough unrelated to allergies, diarrhea, difficulty breathing, fatigue, fever, headache, muscle pain, nausea, runny nose, shaking with chills, shortness of breath, sore throat, loss of taste or smell, vomiting. Client presents with at least one sign or symptom that may indicate coronavirus-19. Standard/surgical mask placed on the client. Ebola Screen: Patient denies travel to an Ebola-affected area in the 21 days before illness onset. Initial Sepsis Screen: Does the patient meet any 2 criteria? No. Patient's initial sepsis screen is negative. Does the patient have a suspected source of infection? Yes: Productive cough/pneumonia. Risk Assessment: Do you want to hurt yourself or someone else? Patient reports no desire to harm self or others. Onset of symptoms was December 16, 2020. 20:44 Method Of Arrival: Ambulatory ll1 20:44 Acuity: HANNAH 4 ll1 Triage Assessment: 22:00 Pain: Denies pain. 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 - Social history:: Smoking status: Patient reports the use of cigarette tobacco products, denies chronic smoking, but will smoke occasionally, Reported history of juuling and/or vaping. Screenin:57 Abuse screen: Denies threats or abuse. Denies injuries from another. Nutritional mg2 screening: No deficits noted. Tuberculosis screening: No symptoms or risk factors identified. Fall Risk None identified. Assessment: 20:56 General: Appears in no apparent distress. comfortable, Behavior is calm, cooperative. mg2 Neuro: Level of Consciousness is awake, alert, obeys commands, Oriented to person, place, time, situation. Cardiovascular: Capillary refill < 3 seconds Patient's skin is warm and dry. Respiratory: Airway is patent Respiratory effort is even, unlabored, Respiratory pattern is regular, symmetrical. Respiratory: Reports cough that is. GI: Reports diarrhea. : No signs and/or symptoms were reported regarding the genitourinary system. EENT: No signs and/or symptoms were reported regarding the EENT system. Derm: Skin is intact, is healthy with good turgor, Skin is pink, warm \T\ dry. normal. Musculoskeletal: Circulation, motion, and sensation intact. Capillary refill < 3 seconds. Vital Signs: 20:44 BP 141 / 90; Pulse 90; Resp 17; Temp 99.0; Pulse Ox 97% on R/A; Weight 65.77 kg; Height ll1 5 ft. 0 in. (152.40 cm); Pain 7/10; 21:09 BP 150 / 101; Pulse 80; Resp 18; Pulse Ox 100% on R/A; mg2 23:17 BP 127 / 81; Pulse 68; Resp 18; Temp 97.8; Pulse Ox 98% on R/A; mg2 20:44 Body Mass Index 28.32 (65.77 kg, 152.40 cm) ll1 ED Course: 20:37 Patient arrived in ED. mr 20:44 Arm band placed on Patient placed in an exam room, on a stretcher. ll1 20:47 Triage completed. ll1 20:48 Nahun Arevalo, RN is Primary Nurse. mg2 20:51 Tom Gomez MD is Attending Physician. mh7 20:57 Patient has correct armband on for positive identification. mg2 20:57 No provider procedures requiring assistance completed. mg2 21:44 COVID swab sent to lab. Flu and/or RSV swab sent to lab. Strep swab sent to lab. mg2 Patient did not have IV access during this emergency room visit. 12/26 06:10 Chest Single View XRAY In Process Unspecified. EDMS Administered Medications: 12/25 21:44 Drug: Tylenol 1000 mg Route: PO; mg2 22:27 Follow up: Response: No adverse reaction mg2 Outcome: 23:[address] . [facility] 23:26 Discharged to home ambulatory. mg2 23:26 Condition: stable 23:26 Discharge instructions given to patient, Instructed on discharge instructions, follow up and referral plans. medication usage, Demonstrated understanding of instructions, follow-up care, medications, Prescriptions given X 2. 23:27 Patient left the ED. mg2 Signatures: Dispatcher [employer] VIETNM AndersonRadha MickeyNahun RN RN mg2 Jacques Quijano RN RN ll1 Tom Gomez MD MD 7
--- NOTE | 2020-12-25 23:21 | EDPHYS ---
Physician Documentation [facility] Name: Lianna Paiz Age: 35 yrs Sex: Female : 1985 Arrival Date: 12/25/2020 Time: 20:37 Bed 24 Private MD: ED Physician Tom Gomez HPI: 12/25 21:47 This 35 yrs old Female presents to ER via Ambulatory with complaints of mh7 Cough, Fever, Diarrhea. 21:47 The patient or guardian reports cough, that is intermittent, described as moderate, mh7 with no sputum, flu symptoms, low-grade fever, myalgias. Onset: The symptoms/episode began/occurred 10 day(s) ago. Severity of symptoms: At their worst the symptoms were moderate, 4 day(s) ago, in the emergency department the symptoms are unchanged. Modifying factors: The symptoms are alleviated by nothing, the symptoms are aggravated by nothing. Associated signs and symptoms: Pertinent positives: diarrhea, fever, rhinorrhea, sore throat, Pertinent negatives: chest pain, ear ache, nausea, vomiting. MESS COOK: 21:08 lmp unknown mg2 Historical: - Allergies: 20:44 No Known Allergies; ll1 - PMHx: 20:44 None; ll1 - PSHx: 20:44 ; ll1 - Immunization history:: Flu vaccine is not up to date. - Social history:: Smoking status: Patient reports the use of cigarette tobacco products, denies chronic smoking, but will smoke occasionally, Reported history of juuling and/or vaping. ROS: 21:47 Eyes: Negative for injury, pain, redness, and discharge, Neck: Negative for injury, mh7 pain, and swelling, Cardiovascular: Negative for chest pain, palpitations, and edema. 21:47 Back: Negative for injury and pain, : Negative for injury, bleeding, discharge, and swelling, MS/Extremity: Negative for injury and deformity, Skin: Negative for injury, rash, and discoloration, Neuro: Negative for headache, weakness, numbness, tingling, and seizure, Psych: Negative for depression, anxiety, suicide ideation, homicidal ideation, and hallucinations, Allergy/Immunology: Negative for hives, rash, and allergies, Endocrine: Negative for neck swelling, polydipsia, polyuria, polyphagia, and marked weight changes, Hematologic/Lymphatic: Negative for swollen nodes, abnormal bleeding, and unusual bruising. 21:47 Respiratory: Negative for dyspnea on exertion, hemoptysis, orthopnea, pleurisy, shortness of breath, wheezing. 21:47 Abdomen/GI: Negative for abdominal pain, nausea and vomiting, constipation, abdominal cramps, abdominal distension, anorexia, dysphagia, hematemesis, black/tarry stool, rectal pain, rectal bleeding, bowel incontinence, flatulence. Exam: 21:47 Constitutional: This is a well developed, well nourished patient who is awake, alert, mh7 and in no acute distress. Head/Face: Normocephalic, atraumatic. Eyes: Pupils equal round and reactive to light, extra-ocular motions intact. Lids and lashes normal. Conjunctiva and sclera are non-icteric and not injected. Cornea within normal limits. Periorbital areas with no swelling, redness, or edema. ENT: Nares patent. No nasal discharge, no septal abnormalities noted. Tympanic membranes are normal and external auditory canals are clear. Oropharynx with no redness, swelling, or masses, exudates, or evidence of obstruction, uvula midline. Mucous membranes moist. Neck: Trachea midline, no thyromegaly or masses palpated, and no cervical lymphadenopathy. Supple, full range of motion without nuchal rigidity, or vertebral point tenderness. No Meningismus. Chest/axilla: Normal chest wall appearance and motion. Nontender with no deformity. No lesions are appreciated. Cardiovascular: Regular rate and rhythm with a normal S1 and S2. No gallops, murmurs, or rubs. Normal PMI, no JVD. No pulse deficits. Respiratory: Lungs have equal breath sounds bilaterally, clear to auscultation and percussion. No rales, rhonchi or wheezes noted. No increased work of breathing, no retractions or nasal flaring. Abdomen/GI: Soft, non-tender, with normal bowel sounds. No distension or tympany. No guarding or rebound. No evidence of tenderness throughout. Back: No spinal tenderness. No costovertebral tenderness. Full range of motion. Skin: Warm, dry with normal turgor. Normal color with no rashes, no lesions, and no evidence of cellulitis. MS/ Extremity: Pulses equal, no cyanosis. Neurovascular intact. Full, normal range of motion. Neuro: Awake and alert, GCS 15, oriented to person, place, time, and situation. Cranial nerves II-XII grossly intact. Motor strength 5/5 in all extremities. Sensory grossly intact. Cerebellar exam normal. Normal gait. Psych: Awake, alert, with orientation to person, place and time. Behavior, mood, and affect are within normal limits. Vital Signs: 20:44 BP 141 / 90; Pulse 90; Resp 17; Temp 99.0; Pulse Ox 97% on R/A; Weight 65.77 kg; Height ll1 5 ft. 0 in. (152.40 cm); Pain 7/10; 21:09 BP 150 / 101; Pulse 80; Resp 18; Pulse Ox 100% on R/A; mg2 23:17 BP 127 / 81; Pulse 68; Resp 18; Temp 97.8; Pulse Ox 98% on R/A; mg2 20:44 Body Mass Index 28.32 (65.77 kg, 152.40 cm) ll1 MDM: 23:18 Differential Diagnosis: Bronchitis Influenza Upper Respiratory Infection Allergic [facility] Rhinitis Viral Syndrome Pneumonia. Data reviewed: vital signs, nurses notes, lab test result(s), Flu: negative strep, coronavirus. Data interpreted: Pulse oximetry: on room air is 98 %. Interpretation: normal. Counseling: I had a detailed discussion with the patient and/or guardian regarding: the historical points, exam findings, and any diagnostic results supporting the discharge/admit diagnosis, lab results, radiology results, the need for outpatient follow up, to return to the emergency department if symptoms worsen or persist or if there are any questions or concerns that arise at home. Response to treatment: the patient's symptoms have resolved after treatment, the patient's blood pressure is in an acceptable range, mental status has returned to baseline, the patient no longer shows bradycardia, the patient is not short of breath, the patient is not tachycardic, the patient's pain is gone, the patient's temperature has normalized. 23:20 Patient medically screened. [facility] 12/25 21:22 Order name: Influenza Screen (a \\T\\ B) [facility] 12/25 21:22 Order name: Rapid Strep [facility] 12/25 21:27 Order name: COVID-19 : Document "Date of Symptom Onset" if Symptomatic. [facility] 12/25 21:47 Order name: Urine Dipstick--Ancillary (enter results) [facility] 12/25 21:47 Order name: Urine --Ancillary (enter results) [facility] 12/25 21:22 Order name: Chest Single View XRAY [facility] 12/25 21:57 Order name: Influenza Screen (A [facility] 12/25 21:58 Order name: CORONAVIRUS [facility] 12/25 22:03 Order name: Urine --Ancillary; Complete Time: 22:32 [facility] 12/25 22:03 Order name: Urine Dipstick-Ancillary; Complete Time: 22:32 [facility] 12/25 22:46 Order name: Group A Streptococcus Rapid Sc; Complete Time: 23:00 [facility] 12/25 23:01 Order name: COVID-19/FLU A+B; Complete Time: 23:14 [facility] 12/25 21:22 Order name: Urine Dipstick-Ancillary (obtain specimen); Complete Time: 21:44 [facility] 12/25 21:22 Order name: Urine Test (obtain specimen); Complete Time: 21:44 [facility] Administered Medications: 21:44 Drug: Tylenol 1000 mg Route: PO; mg2 22:27 Follow up: Response: No adverse reaction mg2 Disposition: 12/25/20 23:20 Discharged to Home. Impression: Viral Syndrome. - Condition is Stable. - Discharge Instructions: Viral Gastroenteritis, Adult, [id number], Viral Respiratory Infection, [id number]. - Prescriptions for Tessalon Perles 100 mg Oral Capsule - take 1 capsule by ORAL route every 8 hours As needed; 15 capsule. Cipro 500 mg Oral Tablet - take 1 tablet by ORAL route every 12 hours for 5 days; 10 tablet. - Medication Reconciliation Form, Thank You Letter, Antibiotic Education, Prescription Opioid Use form. - Follow up: Private Physician; When: 1 - 2 days; Reason: Worsening of condition, Recheck today's complaints, Continuance of care, Re-evaluation by your physician. - Problem is an ongoing problem. - Symptoms have improved. Signatures: Dispatcher [employer] [facility] Nahun Arevalo RN RN mg2 Jacques Quijano RN RN ll1 Tom Gomez MD MD 7 Corrections: (The following items were deleted from the chart) 23:27 23:20 12/25/2020 23:20 Discharged to Home. Impression: Viral Syndrome. Condition is mg2 Stable. Forms are Medication Reconciliation Form, Thank You Letter, Antibiotic Education, Prescription Opioid Use. Follow up: Private Physician; When: 1 - 2 days; Reason: Worsening of condition, Recheck today's complaints, Continuance of care, Re-evaluation by your physician. Problem is an ongoing problem. Symptoms have improved. mh7
[2020-12-25 23:35] VITALS: BP 127/81; TEMP 97.8; O2SAT 98
--- NOTE | 2020-12-26 08:29 | RAD REPORT ---
EXAM DESCRIPTION: RAD - Chest Single View - 12/25/2020 10:17 pm CLINICAL HISTORY: COUGH COMPARISON: Portable April 26, 2020 TECHNIQUE: AP portable chest image was obtained 12/25/2020 10:17 pm . FINDINGS: Lungs are clear. Heart and vasculature are normal. No measurable pleural effusion and no p neumothorax. Thoracic scoliosis again noted. No acute bone finding. No acute aortic findings suspecte d. IMPRESSION: No acute cardiopulmonary process. No significant change from comparison study.
== END 2020-12-25 23:27 | disposition home or self-care (01) ==
LOC: ER 20:32
DX: B34.9 Viral infection, unspecified (principal); F17.210 Nicotine dependence, cigarettes, uncomplicated; Z20.822 Contact with and (suspected) exposure to COVID-19
CPT/HCPCS: 0240U; 71045; 81003; 81025; 87070; 87081; 99284

== ENCOUNTER 2021-09-05 10:55 | Emergency (ER) | payer SELFPAY ==
[2021-09-05] MEDS ORDERED: HYDROCODONE/APAP 10/325 TAB ONE (12:07)
[2021-09-05] MEDS ORDERED: dexAMETHasone 10 MG/ML VIAL ONE (12:07)
[2021-09-05] MEDS ORDERED: KETOROLAC 30 MG/ML INJ ONE (12:08)
--- NOTE | 2021-09-05 12:28 | EDPHYS ---
Physician Documentation [facility] Name: Lianna Paiz Age: 35 yrs Sex: Female : 1985 Arrival Date: 09/05/2021 Time: 11:04 Bed 13 Private MD: ED Physician Donnie Vasquez HPI: 09/05 12:24 This 35 yrs old Female presents to ER via Ambulatory with complaints of Back rn Injury, Back Pain. 12:24 The patient presents with pain that is acute. The symptoms are located in the low back. rn Onset: The symptoms/episode began/occurred 2 day(s) ago. The pain does not radiate. Associated signs and symptoms: Pertinent negatives: abdominal pain, chest pain, constipation, dysuria, fever, headache, hematuria, incontinence, nausea, numbness, tingling, urinary retention, vomiting, weakness. Modifying factors: The patient symptoms are alleviated by remaining still, the patient symptoms are aggravated by any movement, bending. Severity of symptoms: At their worst the symptoms were moderate, in the emergency department the symptoms are unchanged. The patient has not experienced similar symptoms in the past. The patient has not recently seen a physician. Patient reports was moving patient from wheelchair to bed 2 days ago when felt acute back pain. Reports intermittent back pain that is worse with movement and bending. No fever. No direct trauma. No bowel or bladder issues. Ambulatory.. Historical: - Home Meds: 11:29 None [Active]; tw5 - PSHx: 11:29 None; tw5 - Immunization history:: Client reports receiving the 2nd dose of the Covid vaccine. - Social history:: Smoking status: Patient reports the use of cigarette tobacco products, smokes one pack cigarettes per day. - Family history:: not pertinent. - Hospitalizations: : No recent hospitalization is reported. ROS: 12:24 Constitutional: Negative for fever, chills, and weight loss, Eyes: Negative for injury, rn pain, redness, and discharge, ENT: Negative for injury, pain, and discharge, Neck: Negative for injury, pain, and swelling, Cardiovascular: Negative for chest pain, palpitations, and edema, Respiratory: Negative for shortness of breath, cough, wheezing, and pleuritic chest pain, Abdomen/GI: Negative for abdominal pain, nausea, vomiting, diarrhea, and constipation, Back: Positive for lower back pain : Negative for injury, bleeding, discharge, and swelling, MS/Extremity: Negative for injury and deformity, Skin: Negative for injury, rash, and discoloration, Neuro: Negative for headache, weakness, numbness, tingling, and seizure. Exam: 12:24 Constitutional: This is a well developed, well nourished patient who is awake, alert, rn and in no acute distress. Able to sit up and move without apparent pain, legs crossed and appears pretty comfortable Head/Face: Normocephalic, atraumatic. Cardiovascular: Regular rate and rhythm. No pulse deficits. Respiratory: No increased work of breathing, no retractions or nasal flaring. Abdomen/GI: Soft, non-tender Back: No spinal tenderness. No CVA tenderness. Mild pain with twisting and palpation to left paralumbar region. Skin: Warm, dry MS/ Extremity: Pulses equal, no cyanosis. Neurovascular intact. Full, normal range of motion. Equal circumference. Neuro: Awake and alert, GCS 15, oriented to person, place, time, and situation. Motor strength 5/5 in all extremities. Normal reflexes. Sensory grossly intact. Vital Signs: 11:26 BP 134 / 93; Pulse 100; Resp 18; Temp 98.8; Pulse Ox 100% on R/A; Weight 68.04 kg; tw5 Height 5 ft. (152.40 cm); Pain 10/10; 12:43 BP 147 / 97; Pulse 85; Resp 17; Pulse Ox 98% on R/A; jt3 11:26 Body Mass Index 29.29 (68.04 kg, 152.40 cm) tw5 MDM: 11:26 Patient medically screened. rn 12:24 Differential diagnosis: arthritis, Osteoarthritis sprain, Muscle spasm, radiculopathy, rn disc problem. Data reviewed: vital signs, nurses notes, and as a result, I will discharge patient. Counseling: I had a detailed discussion with the patient and/or guardian regarding: the historical points, exam findings, and any diagnostic results supporting the discharge/admit diagnosis, the need for outpatient follow up, to return to the emergency department if symptoms worsen or persist or if there are any questions or concerns that arise at home. Response to treatment: the patient's symptoms have mildly improved after treatment, and as a result, I will discharge patient. Special discussion: I discussed with the patient/guardian in detail that at this point there is no indication for admission to the hospital. It is understood, however, that if the symptoms persist or worsen the patient needs to return immediately for re-evaluation. ED course: No indication for acute imaging at this time. Patient appears much better a lot better range of motion than she describes. Clinically appears pretty comfortable at this time. Will DC home with steroids and muscle relaxers and recommend [id number] pain medication along with PCP follow-up for MRI as outpatient.. Administered Medications: 11:49 Drug: [place] (HYDROcodone-acetaminophen) 10 mg-325 mg 1 tabs Route: PO; jt3 12:23 Follow up: Response: Marked relief of symptoms; Pain is decreased jt3 11:49 Drug: Ketorolac 30 mg Route: IM; Site: right deltoid; jt3 12:23 Follow up: Response: No adverse reaction; Pain is decreased jt3 11:49 Drug: Decadron (dexamethasone) 10 mg Route: IM; Site: left deltoid; jt3 12:23 Follow up: Response: No adverse reaction; Pain is decreased jt3 Disposition Summary: 09/05/21 12:28 Discharge Ordered Location: Home rn Problem: new rn Symptoms: have improved rn Condition: Stable rn Diagnosis - Low back pain rn - Muscle spasm of back rn Followup: rn - With: Private Physician - When: As needed - Reason: Recheck today's complaints, Re-evaluation by your physician Discharge Instructions: - Discharge Summary Sheet rn - Acute Back Pain, Adult rn - Muscle Cramps and Spasms rn Forms: - Medication Reconciliation Form rn - Thank You Letter rn - Antibiotic collections attorney - Prescription Opioid Use rn - Work release form jt3 Prescriptions: - Cyclobenzaprine 10 mg Oral Tablet - take 1 tablet by ORAL route every 8-12 hours As needed; 10 tablet; Refills: 0, rn Product Selection Permitted - Medrol (Devin) 4 mg Oral Tablets, Dose Pack - take 1 tablet by ORAL route as directed - follow package instructions; 1 rn packet; Refills: 0, Product Selection Permitted Signatures: Donnie Vasquez MD MD rn Wood, Tiffany tw5 Manny Hill RN RN jt3
--- NOTE | 2021-09-05 12:28 | ER ---
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 I have been in pain since. I have sweating from the pain.". Coronavirus screen: Vaccine status: Patient reports receiving the 2nd dose of the covid vaccine. Date July 2021. Ebola Screen: Patient negative for fever greater than or equal to 101.5 degrees Fahrenheit, and additional compatible Ebola Virus Disease symptoms Patient denies exposure to infectious person. Patient denies travel to an Ebola-affected area in the 21 days before illness onset. Initial Sepsis Screen: Does the patient meet any 2 criteria? HR > 90 bpm. Does the patient have a suspected source of infection? No. Patient's initial sepsis screen is negative. Risk Assessment: Do you want to hurt yourself or someone else? Patient reports no desire to harm self or others. Onset of symptoms was September 03, 2021. 11:26 Method Of Arrival: Ambulatory tw5 11:26 Acuity: HANNAH 3 tw5 Triage Assessment: 11:29 General: Appears uncomfortable, unkempt, Behavior is cooperative. Pain: Complains of tw5 pain in back Pain currently is 9 out of 10 on a pain scale. Historical: - Home Meds: 11:29 None [Active]; tw5 - PSHx: 11:29 None; tw5 - Immunization history:: Client reports receiving the 2nd dose of the Covid vaccine. - Social history:: Smoking status: Patient reports the use of cigarette tobacco products, smokes one pack cigarettes per day. - Family history:: not pertinent. - Hospitalizations: : No recent hospitalization is reported. Screenin:36 Abuse screen: Denies threats or abuse. Denies injuries from another. Nutritional jt3 screening: No deficits noted. Tuberculosis screening: No symptoms or risk factors identified. Fall Risk None identified. Assessment: 11:36 General: Appears in no apparent distress. Behavior is anxious. Musculoskeletal: Reports jt3 numbness in right leg Pt. reports back pain after moving a patient two days ago. Alert and oriented x4. Endorses numbness/tingling to right leg. Denies loss of bowel or bladder function. Vital Signs: 11:26 BP 134 / 93; Pulse 100; Resp 18; Temp 98.8; Pulse Ox 100% on R/A; Weight 68.04 kg; tw5 Height 5 ft. (152.40 cm); Pain 10/10; 12:43 BP 147 / 97; Pulse 85; Resp 17; Pulse Ox 98% on R/A; jt3 11:26 Body Mass Index 29.29 (68.04 kg, 152.40 cm) tw5 ED Course: 11:04 Patient arrived in ED. am2 11:26 Kate Santamaria is Primary Nurse. tw5 11:26 Donnie Vasquez MD is Attending Physician. rn 11:29 Triage completed. tw5 11:29 Arm band placed on. tw5 11:36 Patient has correct armband on for positive identification. Bed in low position. Call jt3 light in reach. 11:36 No provider procedures requiring assistance completed. Patient did not have IV access jt3 during this emergency room visit. 11:52 Primary Nurse role handed off by Kate Santamaria jt3 11:52 Manny Hill RN is Primary Nurse. jt3 Administered Medications: 11:49 Drug: [place] (HYDROcodone-acetaminophen) 10 mg-325 mg 1 tabs Route: PO; jt3 12:23 Follow up: Response: Marked relief of symptoms; Pain is decreased jt3 11:49 Drug: Ketorolac 30 mg Route: IM; Site: right deltoid; jt3 12:23 Follow up: Response: No adverse reaction; Pain is decreased jt3 11:49 Drug: Decadron (dexamethasone) 10 mg Route: IM; Site: left deltoid; jt3 12:23 Follow up: Response: No adverse reaction; Pain is decreased jt3 Outcome: 12:28 Discharge ordered by . rn 12:51 Discharged to home ambulatory. jt3 12:51 Condition: improved 13:00 Patient left the ED. jt3 Signatures: Donnie Vasquez MD MD rn Moreno, Amanda am2 aKte Santamaria tw5 Tejchma, Manny, RN RN jt3
[2021-09-05 16:24] VITALS: TEMP 98.8
[2021-09-05 16:25] VITALS: BP 147/97; O2SAT 98
== END 2021-09-05 13:00 | disposition home or self-care (01) ==
LOC: ER 10:55
DX: M62.830 Muscle spasm of back (principal); F17.210 Nicotine dependence, cigarettes, uncomplicated
CPT/HCPCS: 96372; 99282; J1100

== ENCOUNTER → 2023-11-01 | Emergency (ER) | payer SELFPAY ==
[~2023-11-01] MED LIST: NA CHLORIDE 0.9% 1,000 ML ONE
--- OUTSIDE RECORDS SUMMARY | 2023-11-01 10:23 | XMS REPORT | Continuity of Care Document ---
Author Name Unknown Address [address] [place] [address] [facility] Address [address] [place] [address] Care Team Providers Care Architectural Draftsperson Name Role Phone [email or web address] Attending Clinician Unavaila ble [email or web address] Admitting Clinician Unavaila ble Encounters Start Date/Time End Date/Time Encounter Type Admission Type Attending Clinicians Care Facility Care Department Encounter ID Source 2023-09-10 00:00:00 2023-09-10 00:00:00 Outpatient [email or web address] diyala_S PRIV PRIV [id number] [facility] 2023-09-09 00:00:00 2023-09-09 00:00:00 Outpatient [email or web address] diyala_S PRIV PRIV [id number] [facility] 2023-08-16 09:56:07 2023-08-16 09:56:07 Outpatient SFA SFA [id number] Adam F Deonte 2023-08-05 16:39:01 2023-08-05 16:39:01 Outpatient SFA SFA [id number] Adam F Deonte 2023-07-30 10:44:33 2023-07-30 10:44:33 Outpatient SFA SFA [id number] Adam Domínguez Deonte 2023-07-19 15:34:44 2023-07-19 15:34:44 Outpatient SFA SFA [id number] Adam F Deonte Results Test Description Test Time Test Comments Results Result Co mments Source
[2023-11-01 10:51] LABS: Absolute Lymphocytes (CBC) 2.3 K/uL (0.7-4.9); Hematocrit 39.6 % (36.0-45.0); Lymphocytes % 29.3 % (15.3-44.8); MCV 95.5 fL (80-100); MPV 7.8 fL (7.6-11.3); Platelets 271 thou/uL (152-406); RBC Red Blood Cell Count 4.15 M/uL (3.86-4.86)
[2023-11-01 10:55] LABS: Specific Gravity 1.021 (1.005-1.030)
[2023-11-01 11:02] LABS: Specific Gravity 1.021 (1.005-1.030); Urine Bacteria None Seen /HPF (<20); Urine Bilirubin NEGATIVE (Negative); Urine Blood Trace (Negative); Urine Clarity Turbid (Clear); Urine Color Light-Yellow (Yellow); Urine Glucose NEGATIVE (Negative); Urine Mucus 1+ /HPF (None Seen); Urine Protein NEGATIVE (Negative); Urine RBC <5 /HPF (None Seen); Urine Urobilinogen Normal (Normal)
[2023-11-01 11:05] LABS: Barbiturates NEGATIVE (NEGATIVE); Benzodiazepines NEGATIVE (NEGATIVE); Cocaine NEGATIVE (NEGATIVE); METHAMPHETAM NEGATIVE (NEGATIVE); Methadone NEGATIVE (NEGATIVE); Opiates NEGATIVE (NEGATIVE); Phencyclidine NEGATIVE (NEGATIVE); THC Cannibis POSITIVE (NEGATIVE)
[2023-11-01 11:06] LABS: Potassium 3.8 mEq/L (3.5-5.1); Troponin High Sensitivity 5.7 pg/mL (<58.9)
--- NOTE | 2023-11-01 11:24 | RAD REPORT ---
EXAM DESCRIPTION: Miguel Single View11/01/2023 11:02 am CLINICAL HISTORY: Chest pain COMPARISON: 1999 FINDINGS: The lungs appear clear of acute infiltrate. The heart is normal size. Scoliosis involves spine IMPRESSION: No acute abnormalities displayed
--- NOTE | 2023-11-01 14:31 | ER ---
Nurse's Notes [facility] Name: Lianna Paiz Age: 37 yrs Sex: Female : 1985 Arrival Date: 11/01/2023 Time: 10:20 Bed IW9 Private MD: Diagnosis: Chest pain, unspecified Presentation: 11/01 10:21 Chief complaint: EMS states: pt has been having right sided and mid sternal chest pain kc6 with fever x3 days. Coronavirus screen: At this time, the client does not indicate any symptoms associated with coronavirus-19. Ebola Screen: No symptoms or risks identified at this time. Initial Sepsis Screen: Does the patient meet any 2 criteria? No. Patient's initial sepsis screen is negative. Does the patient have a suspected source of infection? No. Patient's initial sepsis screen is negative. Risk Assessment: Do you want to hurt yourself or someone else? Patient reports no desire to harm self or others. Onset of symptoms was November 01, 2023. 10:21 Method Of Arrival: EMS: [facility] kc6 10:21 Acuity: HANNAH 3 kc6 Triage Assessment: 10:22 General: Appears in no apparent distress. comfortable, Behavior is calm, cooperative, kc6 appropriate for age, Reports fever for 2-3 days. Pain: Complains of pain in anterior aspect of right upper chest and mid-sternal area Pain does not radiate. Pain currently is 7 out of 10 on a pain scale. EENT: No signs and/or symptoms were reported regarding the EENT system. Neuro: Level of Consciousness is awake, alert, obeys commands, Oriented to person, place, time, situation, Appropriate for age. Cardiovascular: Reports chest pain, Heart tones S1 S2 present Capillary refill < 3 seconds. Respiratory: Airway is patent Trachea midline Respiratory effort is even, unlabored, Respiratory pattern is regular, symmetrical, Denies shortness of breath. GI: No signs and/or symptoms were reported involving the gastrointestinal system. : No signs and/or symptoms were reported regarding the genitourinary system. Derm: No signs and/or symptoms reported regarding the dermatologic system. Skin is intact, is healthy with good turgor, Skin is pink, warm \T\ dry. Musculoskeletal: No signs and/or symptoms reported regarding the musculoskeletal system. Circulation, motion, and sensation intact. Capillary refill < 3 seconds, Range of motion: intact in all extremities. Historical: - Allergies: 10:22 Pollen; kc6 - PMHx: 10:22 Diabetes mellitus; Hypertensive disorder; kc6 - PSHx: 10:22 section; kc6 - Immunization history:: Adult Immunizations not immunized. - Social history:: Smoking status: Patient/guardian denies using tobacco, the patient reports quitting approximately 1 years ago. Screenin:25 [facility] ED Fall Risk Assessment (Adult) History of falling in the last 3 months, kc6 including since admission No falls in past 3 months (0 pts) Confusion or Disorientation No (0 pts) Intoxicated or Sedated No (0 pts) Impaired Gait No (0 pts) Mobility Assist Device Used No (0 pt) Altered Elimination No (0 pt) Score/Fall Risk Level 0 - 2 = Low Risk. Abuse screen: Denies threats or abuse. Denies injuries from another. Nutritional screening: No deficits noted. Tuberculosis screening: No symptoms or risk factors identified. Assessment: 10:26 Reassessment: please see triage assessment. kc6 11:35 Reassessment: Patient appears in no apparent distress at this time. No changes from 6 previously documented assessment. Patient and/or family updated on plan of care and expected duration. Pain level reassessed. Patient is alert, oriented x 3, equal unlabored respirations, skin warm/dry/pink. 12:35 Reassessment: Patient appears in no apparent distress at this time. No changes from 6 previously documented assessment. Patient and/or family updated on plan of care and expected duration. Pain level reassessed. Patient is alert, oriented x 3, equal unlabored respirations, skin warm/dry/pink. Vital Signs: 10:21 BP 116 / 99; Pulse 78; Resp 17 S; Temp 97.8(O); Pulse Ox 100% on R/A; Weight 56.7 kg kc6 (R); Height 5 ft. 0 in. (R); Pain 7/10; 11:36 BP 114 / 65; Pulse 82; Resp 17 S; Pulse Ox 97% on R/A; kc6 10:21 Body Mass Index 24.41 (56.70 kg, 152.4 cm) kc6 10:21 Pain Scale: Adult kc ED Course: 10:21 Patient arrived in ED. kc6 10:22 Triage completed. kc6 10:22 Arm band placed on. kc6 10:24 Stefan Ortiz MD is Attending Physician. kdr 10:25 Patient maintains SpO2 saturation greater than 95% on room air. kc6 10:26 Nadia Sheppard, RN is Primary Nurse. kc6 10:26 Patient has correct armband on for positive identification. Bed in low position. Call kc6 light in reach. Side rails up X2. Client placed on continuous cardiac and pulse oximetry monitoring. NIBP monitoring applied. monitoring tech on. 10:47 Urine Drug Screen Sent. kc6 10:47 Test, Urine Sent. kc6 10:47 Urinalysis w/ reflexes Sent. kc6 10:48 Inserted saline lock: 20 gauge in right antecubital area, using aseptic technique. kc6 Blood collected. 11:03 XRAY Chest (1 view) In Process Unspecified. EDMS 11:05 X-ray completed. Portable x-ray completed in exam room. Patient tolerated procedure mh1 well. 15:05 No provider procedures requiring assistance completed. IV discontinued, intact, kc6 bleeding controlled, No redness/swelling at site. Pressure dressing applied. Administered Medications: 11:11 Drug: NS 0.9% IV 1000 ml IV at 1 bolus Per protocol; 1000 mL bolus Route: IV; Rate: 1 bp bolus; Site: right antecubital; Medication: 15:05 VIS not applicable for this client. kc6 Outcome: 14:30 Discharge ordered by . kdr 15:05 Discharged to home ambulatory, kc6 15:05 Condition: improved 15:05 Discharge instructions given to patient, Instructed on discharge instructions, follow up and referral plans. Demonstrated understanding of instructions, follow-up care, 15:05 Patient left the ED. kc6 Signatures: Dispatcher [employer] EDMS Stefan Ortiz MD MD kdr Myah Brown [facility] Tanmay Francisco, GLEN RN bp Nadia Sheppard, RN RN kc6 Corrections: (The following items were deleted from the chart) 10:23 10:22 Allergies: No Known Allergies; kc6 kc6
--- NOTE | 2023-11-01 14:31 | EDPHYS ---
Physician Documentation [facility] Name: Lianna Paiz Age: 37 yrs Sex: Female : 1985 Arrival Date: 11/01/2023 Time: 10:20 Bed IW9 Private MD: ED Physician Stefan Ortiz HPI: 11/01 17:26 This 37 yrs old Female presents to ER via EMS with complaints of Chest Pain. kdr 17:28 Patient complains of right-sided midsternal chest pain and intermittent fever for the kdr past 3 days. Patient concerned that she may either have COVID or some other issue. Patient does mildly anxious but otherwise stable in the ED. Vital signs initially are stable.. Onset: The symptoms/episode began/occurred acutely, suddenly, 3 day(s) ago. Severity of symptoms: At their worst the symptoms were mild in the emergency department the symptoms are unchanged. The patient has not experienced similar symptoms in the past. The patient has not recently seen a physician. Historical: - Allergies: 10:22 Pollen; kc6 - PMHx: 10:22 Diabetes mellitus; Hypertensive disorder; kc6 - PSHx: 10:22 section; kc6 - Immunization history:: Adult Immunizations not immunized. - Social history:: Smoking status: Patient/guardian denies using tobacco, the patient reports quitting approximately 1 years ago. ROS: 17:28 Constitutional: Negative for fever, chills, and weight loss, Eyes: Negative for injury, kdr pain, redness, and discharge, Neck: Negative for injury, pain, and swelling, Respiratory: Negative for shortness of breath, cough, wheezing, and pleuritic chest pain, Abdomen/GI: Negative for abdominal pain, nausea, vomiting, diarrhea, and constipation, Back: Negative for injury and pain, : Negative for injury, bleeding, discharge, and swelling, MS/Extremity: Negative for injury and deformity, Skin: Negative for injury, rash, and discoloration, Neuro: Negative for headache, weakness, numbness, tingling, and seizure activity. Psych: Negative for depression, anxiety, suicide ideation, homicidal ideation, and hallucinations, Allergy/Immunology: Negative for hives, rash, and allergies, Endocrine: Negative for neck swelling, polydipsia, polyuria, polyphagia, and marked weight changes, Hematologic/Lymphatic: Negative for swollen nodes, abnormal bleeding, and unusual bruising, 17:28 Cardiovascular: Positive for chest pain, Exam: 17:28 Constitutional: This is a well developed, well nourished patient who is awake, alert, kdr and in no acute distress. Head/Face: Normocephalic, atraumatic. Eyes: Pupils equal round and reactive to light, extra-ocular motions intact. Lids and lashes normal. Conjunctiva and sclera are non-icteric and not injected. Cornea within normal limits. Periorbital areas with no swelling, redness, or edema. Neck: Trachea midline, no thyromegaly or masses palpated, and no cervical lymphadenopathy. Supple, full range of motion without nuchal rigidity, or vertebral point tenderness. No Meningismus. Chest/axilla: Normal chest wall appearance and motion. Nontender with no deformity. No lesions are appreciated. Cardiovascular: Regular rate and rhythm with a normal S1 and S2. No gallops, murmurs, or rubs. Normal PMI, no JVD. No pulse deficits. Respiratory: Lungs have equal breath sounds bilaterally, clear to auscultation and percussion. No rales, rhonchi or wheezes noted. No increased work of breathing, no retractions or nasal flaring. Abdomen/GI: Soft, non-tender, with normal bowel sounds. No distension or tympany. No guarding or rebound. No evidence of tenderness throughout. Back: No spinal tenderness. No costovertebral tenderness. Full range of motion. Skin: Warm, dry with normal turgor. Normal color with no rashes, no lesions, and no evidence of cellulitis. Neuro: Awake and alert, GCS 15, oriented to person, place, time, and situation. Cranial nerves II-XII grossly intact. Motor strength 5/5 in all extremities. Sensory grossly intact. Cerebellar exam normal. Normal gait. 17:28 ENT: Very poor global dentition. Vital Signs: 10:21 BP 116 / 99; Pulse 78; Resp 17 S; Temp 97.8(O); Pulse Ox 100% on R/A; Weight 56.7 kg kc6 (R); Height 5 ft. 0 in. (R); Pain 7/10; 11:36 BP 114 / 65; Pulse 82; Resp 17 S; Pulse Ox 97% on R/A; kc6 10:21 Body Mass Index 24.41 (56.70 kg, 152.4 cm) 6 10:21 Pain Scale: Adult kc6 MDM: 14:30 Patient medically screened. kdr 20:38 Data reviewed: vital signs, nurses notes, lab test result(s), radiologic studies. kdr 11/01 10:24 Order name: Basic Metabolic Panel; Complete Time: 12:43 kdr 11/01 10:24 Order name: CBC with Diff; Complete Time: 12:43 kdr 11/01 10:24 Order name: NT PRO-BNP; Complete Time: 12:43 kdr 11/01 10:24 Order name: Troponin HS; Complete Time: 12:43 kdr 11/01 10:32 Order name: Urinalysis w/ reflexes; Complete Time: 12:43 kdr 11/01 10:32 Order name: Test, Urine; Complete Time: 12:43 kdr 11/01 10:32 Order name: Urine Drug Screen; Complete Time: 12:43 kdr 11/01 11:01 Order name: COVID-19 SARS RT PCR; Complete Time: 12:43 kdr 11/01 11:01 Order name: Flu; Complete Time: 12:43 kdr 11/01 12:46 Order name: Troponin HS; Complete Time: 14:12 kdr 11/01 10:24 Order name: XRAY Chest (1 view); Complete Time: 12:43 kdr 11/01 10:24 Order name: EKG; Complete Time: 10:25 kdr 11/01 10:24 Order name: Cardiac monitoring; Complete Time: 10:37 kdr 11/01 10:24 Order name: EKG - Nurse/Tech; Complete Time: 10:37 kdr 11/01 10:24 Order name: IV Saline Lock; Complete Time: 10:37 kdr 11/01 10:24 Order name: Labs collected and sent; Complete Time: 10:37 kdr 11/01 10:24 Order name: O2 Per Protocol; Complete Time: 10:26 kdr 11/01 10:24 Order name: O2 Sat Monitoring; Complete Time: 10:26 kdr Administered Medications: 11:11 Drug: NS 0.9% IV 1000 ml IV at 1 bolus Per protocol; 1000 mL bolus Route: IV; Rate: 1 bp bolus; Site: right antecubital; Disposition Summary: 11/01/23 14:30 Discharge Ordered Notes: Location: Home kdr Problem: new kdr Symptoms: are resolved kdr Condition: Stable kdr Diagnosis - Chest pain, unspecified kdr Followup: kdr - With: Private Physician - When: 2 - 3 days - Reason: If symptoms return, Further diagnostic work-up, Recheck today's complaints, Continuance of care, Re-evaluation by your physician Discharge Instructions: - Discharge Summary Sheet kdr - Nonspecific Chest Pain, Adult, [id number] kdr Forms: - Medication Reconciliation Form kdr - Thank You Letter kdr - Patient Portal Instructions kdr - Leadership Thank You Letter kdr Signatures: Dispatcher [employer] EDStefan Miner MD MD kdr Tanmay Francisco RN RN Nadia Allen RN RN kc6 Corrections: (The following items were deleted from the chart) 10:23 10:22 Allergies: No Known Allergies; kc6 kc6
[2023-11-01 16:23] VITALS: TEMP 97.8
[2023-11-01 16:29] VITALS: BP 114/65; O2SAT 97
== END ==
LOC: ER 10:20
DX: R07.9 Chest pain, unspecified (principal)
CPT/HCPCS: 36415; 71045; 80048; 80307; 81001; 81025; 83880; 84484; 85025; 87635; 87804; 99285; J7030

== ENCOUNTER 2025-01-30 10:48 | Emergency (ER) | payer OTHER, SELFPAY ==
--- OUTSIDE RECORDS SUMMARY | 2025-01-30 10:52 | XMS REPORT | Continuity of Care Document ---
Author Name Unknown Address [address] [place] [address] [facility] [place] Address [address] [place] [address] Care Team Providers Care Administrative Assistant Name Role Phone PCP, PATIENT DOES NOT HAVE A Primary Care Physic ishaan Unavailable Tatiana Motta Attending Clinician [phone] TATIANA SPENCER Attending Clinician Unavailable TATIANA SPENCER Attending Clinician Unavailable KENDY_GCBZW_La Nena_S Attending Clinician Larry elena GC_GCBZW_Kajuliaa_S Admitting Clinician Larry elena Payers Payer Name Policy Type Policy Number Effective Date Expirati on Date Source KERRY Eason/ MAKAYLA GUZMÁN [id number] 2024 00:00:00 Problems Condition Name Condition Details Condition Category Status Onset Date Resolution Date Last Treatment Date Treating Clinician Comments Source IUFD (intrauter ine ) IUFD (intrauter ine ) Disease Active 01-10 00:00: 00 [facility] Allergies, Adverse Reactions, Alerts Allergy Name Allergy Type Status Severity Reaction(s) Onset Date Inactive Date Treating Clinician Comments Source NO KNOWN ALLERGIE S Drug Class Active [facility] Social History Social Habit Start Date Stop Date Quantity Comments Source Sexual orientation U [facility] Sex assigned at 1985 00:00:00 1985 00:00:00 [facility] Smoking Status Start Date Stop Date Source Tobacco smoking consumption unknown [facility] Medications Ordered Medication Name Filled Medication Name Start Date Stop Date Current Medication? Ordering Clinician Indication Dosage Frequency Signature (SIG) Comments Components Source ondansetron (ZOFRAN-ODT ) disintegrat ing tablet 4 mg 11-23 17:00: 00 11-23 16:18 :00 No 4mg 4 mg, Oral, ONCE, 1 dose, On Sat11/23/24 at 1100, Routine [facility] ibuprofen (IBU) tablet 600 mg 11-23 16:15: 00 11-23 16:18 :00 No 600mg 600 mg, Oral, ONCE, 1 dose, On Sat11/23/24 at 1015, LUISA [facility] vitamin w/FA ( RX OR GENERIC EQUIVALENT) tablet 01-11 00:00: 00 Yes 1{tbl} Take 1 Tab by mouth daily. [facility] docusate calcium (SURFAK) 240 mg capsule 01-11 00:00: 00 Yes 240mg Take 1 Cap by mouth once daily as needed for Constipati on. [facility] ferrous sulfate 325 mg (65 mg Iron) tablet 01-11 00:00: 00 Yes 325mg Take 1 Tab by mouth 2 (two) times daily. [facility] ibuprofen (MOTRIN) 600 mg tablet 01-11 00:00: 00 Yes 600mg Take 1 Tab by mouth every 6 (six) hours as needed for Pain. [facility] hydrocodone -acetaminop hen (NORCO 5) 5-325 mg tablet 01-11 00:00: 00 Yes 1{tbl} Take 1-2 Tabs by mouth every 6 (six) hours as needed for Pain. Not to be administer ed at the same time as [place] 10 if ordered. For patients < 12 years recommend do not exceed 5 doses or 2.6 gm in 24 hours totals for all acetaminop hen containing products. For adults with normal hepatic function recommend do not exceed 4 grams in 24 hours for all acetaminop hen containing products. [facility] Immunizations Ordered Immunization Name Filled Immunization Name Date Status Comments Source Influenza Virus Vaccine 2010-09-20 00:00:00 Completed [facility] Vital Signs Vital Name Observation Time Observation Value Comments S keturah Systolic blood pressure 2024 15:59:00 150 mm[Hg] [facility] Diastolic blood pressure 2024 15:59:00 92 mm[Hg] [facility] Heart rate 2024 15:59:00 66 /min [facility] Body temperature 2024 15:59:00 36.78 Barbara [facility] Respiratory rate 2024 15:59:00 20 /min [facility] Body height 2024 15:59:00 152.4 cm [facility] Body weight 2024 15:59:00 52.164 kg [facility] BMI 2024 15:59:00 22.46 kg/m2 [facility] Oxygen saturation in Arterial blood by Pulse oximetry 2024 15:59:00 100 /min [facility] Procedures Procedure Date / Time Performed Performing Clinicia n Source BASIC METABOLIC PANEL (NA, K, CL, CO2, GLUCOSE, BUN, CREATININE, CA) 2024 16:22:00 Tatiana Spencer [facility] CBC WITH DIFF 2024 16:22:00 Tatiana Spencer [facility] POCT TEST 2024 16:12:00 Tatiana Spencer [facility] URINALYSIS 2024 16:09:00 Tatiana Spencer [facility] INFLUENZA A/B RSV COVID NAAT 2024 16:09:00 Tatiana Spencer [facility] Encounters Start Date/Time End Date/Time Encounter Type Admission Type Attending Clinicians Care Facility Care Department Encounter ID Source 2024 10:00:00 2024 12:04:00 Emergency Tatiana Spencer [facility] [id number] [facility] 2024 10:00:00 2024 12:04:00 Emergency X ROSIO, AWAAIYANA TERESEMARY AWANANCYBartolome [facility] ERT [id number] [facility] 2023-09-10 00:00:00 2023-09-10 00:00:00 Outpatient GC_GCBZW_Ka diyala_S PRIV PRIV [id number] [facility] 2023-09-09 00:00:00 2023-09-09 00:00:00 Outpatient GC_GCBZW_Ka diyala_S PRIV PRIV [id number] [facility] 2023-08-16 09:56:07 2023-08-16 09:56:07 Outpatient SFA SFA [id number] Adam Clemons 2023-08-05 16:39:01 2023-08-05 16:39:01 Outpatient SFA SFA [id number] Adam Clemons 2023-07-30 10:44:33 2023-07-30 10:44:33 Outpatient SFA SFA [id number] Adam Clmeons 2023-07-19 15:34:44 2023-07-19 15:34:44 Outpatient SFA SFA [id number] Adam Clemons Results Test Description Test Time Test Comments Results Result Co mments Source [facility] WITH [id number] 16:37:20* Test Item Value Reference Range Interpretation Comme nts WBC (test code = 6690-2) 6.48 4.30-11.10 RBC (test code = 789-8) 3.75 3.93-5.25 L HGB (test code = 718-7) 12.5 g/dL 11.6-15.0 HCT (test code = 4544-3) 36.1 % 35.7-45.2 MCV (test code = 787-2) 96.3 fL 80.6-95.5 H MCH (test code = 785-6) 33.3 pg 25.9-32.8 H MCHC (test code = 786-4) 34.6 g/dL 31.6-35.1 RDW-SD (test code = 58838-0) 44.3 fL 39.0-49.9 RDW-CV (test code = 788-0) 12.5 % 12.0-15.5 PLT (test code = 777-3) 271 166-358 MPV (test code = 06561-2) 9.4 fL 9.5-12.9 L NRBC/100 WBC (test code = 0800516570) 0.0 0.0-10.0 NRBC x10^3 (test code = 7665185558) See_Comment [Automated messa ge] The system which generated this result transmitted reference range: 10*3/?L. The reference range was not used to interpret this result as normal/abnormal. GRAN MAT (NEUT) % (test code = 770-8) 65.9 % IMM GRAN % (test code = 6375294390) 0.30 % LYMPH % (test code = 736-9) 23.1 % MONO % (test code = 5905-5) 7.9 % EOS % (test code = 713-8) 2.0 % BASO % (test code = 706-2) 0.8 % GRAN MAT x10^3(ANC) (test code = 1956738994) 4.27 10*3/uL 1.88-7.09 IMM GRAN x10^3 (test code = 0145455322) 0.00-0.06 LYMPH x10^3 (test code = 731-0) 1.50 10*3/uL 1.32-3.29 MONO x10^3 (test code = 742-7) 0.51 10*3/uL 0.33-0.92 EOS x10^3 (test code = 711-2) 0.13 10*3/uL 0.03-0.39 BASO x10^3 (test code = 704-7) 0.05 10*3/uL 0.01-0.07 Lab Interpretation (test code = 89684-2) Abnormal [facility] [id number] 16:12:00* Test Item Value Reference Range Interpretation Comme nts POCT PREG (test code = 1605) Negative On board controls acceptable with C Line (test code = 3574) Yes POCT PREG LOT # (test code = 3575) [id number] POCT PREG TEST DATE ( test code = 3576) 2025-10-26 Lab Interpretation (test cod e = 25008-5) Normal [facility] DNA [id number] 14:01:10 * Test Item Value Reference Range Interpretation Comme nts CADENCE SPECIES (test code = 53632) NEGATIVE NEGATIVE G. VAGINALIS (test code = 85262) POSITIVE NEGATIVE A T. VAGINALIS (test code = 51906) NEGATIVE NEGATIVE Note: The BD Aff irm VPIII Microbial Identification Testis a DNA probe test intended for use in the detectionand identification of Cadence species, Gardnerellavaginalis and Trichomonas vaginalis nucleic acid. UNLESS OTHERWISE INDICATED, ALL TESTING PERFORMED AT [facility] [address] [place] [address] CANDY FEEDER: BERONICA KNAPP M.D. [facility] NUMBER [id number] [facility] [place]. [id number] Notes Date/Time Note Provider Source 2024 11:49:00 Patient called to discharge, no answer from juana, x2. Combs RN [facility] 2024 11:35:38 Called from juana, no answer. OFF WORKER [facility] 2024 09:58:19 Patient reports starting to feel bad 2 days ago with fever, body aches, chills. N/v today. States she took temp at home with thermometer and it was 210. Rosales RN [facility]
[2025-01-30] MEDS ORDERED: NA CHLORIDE 0.9% 1,000 ML ONE (11:08)
[2025-01-30] MEDS ORDERED: ONDANSETRON 4 MG/2 ML VIAL ONE (11:08)
[2025-01-30 11:30] LABS: Absolute Eosinophils 0.2 K/uL (0-0.5); Absolute Lymphocytes (CBC) 1.1 K/uL (0.7-4.9); Absolute Monocytes 0.5 K/uL (0.1-1.3); Absolute Neutrophil 1.7 K/uL (1.8-8.0); Eosinophils % 5.1 % (0-4.4); Hematocrit 37.3 % (36.0-45.0); Hemoglobin 13.3 g/dL (12.0-15.0); Lymphocytes % 31.3 % (15.3-44.8); MCH 33.4 pg (27.0-35.0); MCHC 35.6 g/dL (32.0-36.0); MPV 7.7 fL (7.6-11.3); Monocytes % 15.2 % (3.3-12.3); Neutrophils % 47.4 % (41.7-73.7); Nucleated Red Blood Cells % 0.1 % (0-0); Platelets 249 thou/uL (152-406); RBC Red Blood Cell Count 3.97 M/uL (3.86-4.86); Red Cell Distribution Width 12.7 % (12.1-15.2)
[2025-01-30 11:45] LABS: ALT/SGPT 15 U/L (13-56); Albumin 3.3 g/dL (3.4-5.0); Albumin/Globulin Ratio 0.8 (1.1-1.8); Alkaline Phosphatase 64 U/L (45-117); Anion Gap 4.7 mEq/L (5.0-15.0); BUN Blood Urea Nitrogen 14 mg/dL (7-18); Bicarbonate 30 mEq/L (21-32); Bilirubin Total 0.6 mg/dL (0.2-1.0); Globulin 3.9 g/dL (2.3-3.5); Glomerular Filtration Rate 119 ml/min (=/>90); Glucose Level 88 mg/dL (74-106); Potassium 3.7 mEq/L (3.5-5.1); Protein, Total 7.2 g/dL (6.4-8.2); Sodium Level 138 mEq/L (136-145)
[2025-01-30 11:50] LABS: AST/SGOT < 10 U/L (15-37)
[2025-01-30 11:52] LABS: Specific Gravity 1.027 (1.005-1.030)
[2025-01-30 11:55] LABS: Specific Gravity 1.027 (1.005-1.030); Urine Bacteria None Seen /HPF (<20); Urine Bilirubin NEGATIVE (Negative); Urine Blood Trace (Negative); Urine Clarity Extremely Turbid (Clear); Urine Color Yellow (Yellow); Urine Culture Reflex Order NOT NEEDED; Urine Glucose NEGATIVE (Negative); Urine Ketones NEGATIVE (Negative); Urine Microscopic Reflex YN ORDER UMIC; Urine Mucus 2+ /HPF (None Seen); Urine Nitrite NEGATIVE (Negative); Urine Protein TRACE (Negative); Urine Urobilinogen 3+ (Normal); Urine WBC <5 /HPF (<5); Urine pH 6.5 (5.0-7.0)
--- NOTE | 2025-01-30 12:03 | ER ---
Nurse's Notes [facility] Name: Lianna Paiz Age: 39 yrs Sex: Female : 1985 Arrival Date: 01/30/2025 Time: 10:48 Bed 2 Private MD: Diagnosis: Dehydration;UTI/ Urinary tract infection, site not specified Presentation: 01/30 10:57 Chief complaint: Patient states: NICOLE, abdominal pain, N/V, lightheaded, SOB, hard to ll1 concentrate, cough, SOB for 2 days. Coronavirus screen: Client denies travel out of the [place] in the last 14 days. congestion, cough unrelated to allergies, fatigue, headache, muscle pain, nausea, sore throat, vomiting. Client presents with at least one sign or symptom that may indicate coronavirus-19. Standard/surgical mask placed on the client. Ebola Screen: Patient denies travel to an Ebola-affected area in the 21 days before illness onset. Initial Sepsis Screen: Does the patient meet any 2 criteria? No. Patient's initial sepsis screen is negative. Does the patient have a suspected source of infection? No. Patient's initial sepsis screen is negative. Risk Assessment: Do you want to hurt yourself or someone else? Patient reports no desire to harm self or others. Onset of symptoms was January 29, 2025. 10:57 Method Of Arrival: Ambulatory 1 10:57 Acuity: HANNAH 3 ll1 Triage Assessment: 10:59 General: Appears uncomfortable, Behavior is calm, cooperative, appropriate for age, ll1 Reports feeling ill for fatigue for. Pain: Complains of pain in head Pain currently is 10 out of 10 on a pain scale. Quality of pain is described as aching, Pain began 1 day ago. Neuro: Reports headache weakness. Respiratory: Reports cough that is. GI: Reports nausea, vomiting. 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 - Infectious Disease History:: Denies. - Social history:: Smoking status: Reported history of juuling and/or vaping. Screenin:00 [facility] ED Fall Risk Assessment (Adult) History of falling in the last 3 months, ll1 including since admission No falls in past 3 months (0 pts) Confusion or Disorientation No (0 pts) Intoxicated or Sedated No (0 pts) Impaired Gait No (0 pts) Mobility Assist Device Used No (0 pt) Altered Elimination No (0 pt) Score/Fall Risk Level 0 - 2 = Low Risk Maintained a safe environment, Hourly rounding (assess needs \T\ fall precautionary measures) done. Abuse screen: Denies threats or abuse. Nutritional screening: No deficits noted. Tuberculosis screening: No symptoms or risk factors identified. Assessment: 11:23 General: Appears in no apparent distress. Behavior is calm, cooperative. Pain: Pain hb currently is 8 out of 10 on a pain scale. Neuro: Level of Consciousness is awake, alert, obeys commands, Oriented to person, place, time, situation, Reports dizziness, headache. Cardiovascular: Patient's skin is warm and dry. Respiratory: Respiratory effort is even, unlabored, Respiratory pattern is regular, symmetrical. GI: Reports nausea, vomiting. : No signs and/or symptoms were reported regarding the genitourinary system. EENT: No signs and/or symptoms were reported regarding the EENT system. Derm: Skin is pink, warm \T\ dry. Musculoskeletal: No signs and/or symptoms reported regarding the musculoskeletal system. 12:41 Reassessment: Patient is alert, oriented x 3, equal unlabored respirations, skin aa5 warm/dry/pink. Vital Signs: 10:57 Pulse 87; Resp 16; Temp 97.4; Pulse Ox 100% ; Weight 52.16 kg; Height 5 ft. 0 in. ; ll1 Pain 10/10; 11:57 BP 118 / 68; Pulse 68; Resp 17 S; Pulse Ox 100% ; aa5 10:57 Body Mass Index 22.46 (52.16 kg, 152.4 cm) ll1 10:57 Pain Scale: Adult ll1 David Coma Score: 13:07 Eye Response: spontaneous(4). Motor Response: obeys commands(6). Verbal Response: dr5 oriented(5). Total: 15. ED Course: 10:49 Patient arrived in ED. rg4 10:53 Mickey Ontiveros [facility]NP-C [facility]. dr5 10:53 Spencer Hyde MD is Attending Physician. dr5 10:59 Triage completed. ll1 11:00 Arm band placed on. ll1 11:02 Tanmay Francisco, RN is Primary Nurse. bp 11:21 Initial lab(s) drawn, by me, sent to lab. Inserted saline lock: 22 gauge in left hb antecubital area, using aseptic technique. Blood collected. Flushed with 10 mL NS. 11:22 Test, Urine Sent. hb 11:22 CMP Sent. hb 11:23 Patient has correct armband on for positive identification. Bed in low position. Call hb light in reach. Provided Education on: medications, tests, result times, bathroom location, use of call light . Door closed. Warm blanket given. PO fluids given. 11:23 CBC with Diff Sent. hb 12:40 IV discontinued, intact, bleeding controlled, No redness/swelling at site. Pressure aa5 dressing applied. 12:40 No provider procedures requiring assistance completed. aa5 Administered Medications: 11:22 Drug: NS 0.9% IV 1000 ml IV at 1000 ml once; to be given as a bolus over 60 minutes hb Route: IV; Rate: 1000 ml; Site: left antecubital; 12:40 Follow up: IV Status: Completed infusion; IV Intake: 1000ml aa5 11:22 Drug: Ondansetron IVP 4 mg IVP once; over 2 minutes Route: IVP; Site: left antecubital; hb 12:40 Follow up: Response: No adverse reaction; Nausea is decreased aa5 Medication: 12:00 VIS not applicable for this client. ll1 Intake: 12:40 IV: 1000ml; Total: 1000ml. aa5 Outcome: 12:03 Discharge ordered by . dr5 12:41 Discharged to home ambulatory, aa5 12:41 Condition: stable 12:41 Discharge instructions given to patient, Instructed on discharge instructions, follow up and referral plans. medication usage, Demonstrated understanding of instructions, follow-up care, medications, Prescriptions given X 2, 12:42 Patient left the ED. aa5 Signatures: Jeni Peoples RN RN aa5 Alana Keen RN RN Leana Salazar rg4 Tanmay Francisco RN RN bp Jacques Quijano RN RN ll1 Taco Mccoy rs6 Mickey Ontiveros, SFDC DEVELOPER-C [facility] DEVELOPER-Cdr5 Corrections: (The following items were deleted from the chart) 12:42 11:57 BP 118 / 68; Pulse 68bpm; Resp 70bpm; Pulse Ox 100%; rs6 aa5
--- NOTE | 2025-01-30 12:03 | EDPHYS ---
Physician Documentation [facility] Name: Lianna Paiz Age: 39 yrs Sex: Female : 1985 Arrival Date: 01/30/2025 Time: 10:48 Bed 2 Private MD: ED Physician Spencer Hyde HPI: 01/30 13:07 This 39 yrs old Female presents to ER via Ambulatory with complaints of dr5 Headache, Confusion. 13:07 Onset: The symptoms/episode began/occurred 2 day(s) ago. Severity of symptoms: At its dr5 worst the pain was mild, "similar to past headaches". Patient is a 39-year-old female with history of hypertension and diabetes coming in with headache, drowsiness, urinary discomfort for the past 2 days. Patient reports that this has happened before to her in the past and she was diagnosed with dehydration. Patient also reports that she started her new job yesterday and missed work yesterday and today and is requesting a work note.. 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 - Infectious Disease History:: Denies. - Social history:: Smoking status: Reported history of juuling and/or vaping. ROS: 13:07 Constitutional: as per hpi dr5 Exam: 13:07 Constitutional: This is a well developed, well nourished patient who is awake, alert, dr5 and in no acute distress. Head/Face: Normocephalic, atraumatic. Eyes: Pupils equal round and reactive to light, extra-ocular motions intact. Lids and lashes normal. Conjunctiva and sclera are non-icteric and not injected. Cornea within normal limits. Periorbital areas with no swelling, redness, or edema. Neck: Trachea midline, no thyromegaly or masses palpated, and no cervical lymphadenopathy. Supple, full range of motion without nuchal rigidity, or vertebral point tenderness. No Meningismus. Chest/axilla: Normal chest wall appearance and motion. Nontender with no deformity. No lesions are appreciated. Cardiovascular: Regular rate and rhythm with a normal S1 and S2. Normal PMI, no JVD. No pulse deficits. Respiratory: Lungs have equal breath sounds bilaterally, clear to auscultation. No rales, rhonchi or wheezes noted. No increased work of breathing, no retractions or nasal flaring. Back: No spinal tenderness. No costovertebral tenderness. Full range of motion. Skin: Warm, dry with normal turgor. Normal color with no rashes, no lesions, and no evidence of cellulitis. MS/ Extremity: Pulses equal, no cyanosis. Neurovascular intact. Full, normal range of motion. Neuro: Awake and alert, GCS 15, oriented to person, place, time, and situation. Cranial nerves II-XII grossly intact. Motor strength 5/5 in all extremities. Sensory grossly intact. Cerebellar exam normal. Normal gait. Vital Signs: 10:57 Pulse 87; Resp 16; Temp 97.4; Pulse Ox 100% ; Weight 52.16 kg; Height 5 ft. 0 in. ; ll1 Pain 10/10; 11:57 BP 118 / 68; Pulse 68; Resp 17 S; Pulse Ox 100% ; aa5 10:57 Body Mass Index 22.46 (52.16 kg, 152.4 cm) ll1 10:57 Pain Scale: Adult ll1 David Coma Score: 13:07 Eye Response: spontaneous(4). Motor Response: obeys commands(6). Verbal Response: dr5 oriented(5). Total: 15. MDM: 10:53 Medical Screening Exam initiated dr5 13:07 Differential diagnosis: otitis, tension headache, UTI, Dehydration. Data reviewed: dr5 vital signs, nurses notes, lab test result(s), CBC, electrolytes. I considered the following discharge prescriptions or medication management in the emergency department Medications were administered in the Emergency Department. See MAR. Care significantly affected by the following chronic conditions: Diabetes, Hypertension. Care significantly affected by the following Social Determinants of Health: Poor access to healthcare and/or lack of insurance, Poor access to transportation, Problems related to employment. Counseling: I had a detailed discussion with the patient and/or guardian regarding the historical points, exam findings, and any diagnostic results supporting the discharge/admit diagnosis, the presence of at least one elevated blood pressure reading (>120/80) during this emergency department visit, lab results, the need for outpatient follow up, for definitive care, a family practitioner, to return to the emergency department if symptoms worsen or persist or if there are any questions or concerns that arise at home. Medication response: Zofran relieved the patient's nausea. Normal saline. Response to treatment: There is no appreciated change of the patient's symptoms at this time. ED course: Patient received 1 L of normal saline and Zofran IV. Patient has mild urinary tract infection will cover with Macrobid. Patient reports that she is feeling much better in the room. Patient had 2 cranberry juices without vomiting. Passed p.o. challenge. Work note given to patient and will have her follow-up with primary care doctor this week. All questions answered and strict ER precautions given.. 01/30 11: Order name: CBC with Diff; Complete Time: 11: dr5 01/30 11: Order name: CMP; Complete Time: 11:52 dr5 01/30 11: Order name: Urinalysis w/ reflexes; Complete Time: 12: dr5 01/30 11:01 Order name: Test, Urine; Complete Time: 12:02 dr5 Administered Medications: : Drug: NS 0.9% IV 1000 ml IV at 1000 ml once; to be given as a bolus over 60 minutes hb Route: IV; Rate: 1000 ml; Site: left antecubital; 12:40 Follow up: IV Status: Completed infusion; IV Intake: 1000ml aa5 Drug: Ondansetron IVP 4 mg IVP once; over 2 minutes Route: IVP; Site: left antecubital; hb 12:40 Follow up: Response: No adverse reaction; Nausea is decreased aa5 Disposition Summary: 01/30/25 12:03 Discharge Ordered Notes: Location: Home dr5 Condition: Stable dr5 Diagnosis - Dehydration dr5 - UTI/ Urinary tract infection, site not specified dr5 Followup: dr5 - With: Emergency Department - When: As needed - Reason: Worsening of condition Followup: dr5 - With: Private Physician - When: 1 - 2 days - Reason: Recheck today's complaints, Continuance of care, Re-evaluation by your physician Discharge Instructions: - Discharge Summary Sheet ll1 - Dehydration, Adult dr5 - Urinary Tract Infection, Adult, [id number] dr5 Forms: - Work release form ll1 - Medication Reconciliation Form dr5 - Antibiotic Education dr5 - Patient Portal Instructions dr5 - Leadership Thank You Letter dr5 Prescriptions: - Zofran 4 mg Oral Tablet - take 1 tablet ORAL route every 12 hours As needed; 20 tablet; Refills: 0, dr5 Product Selection Permitted - Macrobid 100 mg Oral Capsule - take 1 capsule ORAL route every 12 hours for 7 days; 14 capsule; Refills: 0, dr5 Product Selection Permitted Signatures: Dispatcher [employer] EDMS Alana Keen RN RN Jacques Quijano RN RN ll1 Mickey Ontiveros, SOFTWARE SALES REPRESENTATIVE-C SOFTWARE SALES REPRESENTATIVE-Cdr5 Jeni Peoples RN aa5 Corrections: (The following items were deleted from the chart) 11: 11:02 CBC+H.LAB.BRZ ordered. EDMS EDMS 11: 11:02 COMPREHENSIVE METABOLIC PANEL+C.LAB.BRZ ordered. EDMS EDMS 11: 11:02 Urinalysis+U.LAB.BRZ ordered. EDMS EDMS 11:02 11:02 Test, Urine+UC.LAB.BRZ ordered. EDMS EDMS
[2025-01-30 12:46] VITALS: TEMP 97.4; O2SAT 100
[2025-01-30 12:47] VITALS: BP 118/68
== END 2025-01-30 12:42 | disposition home or self-care (01) ==
LOC: ER 10:48
DX: E86.0 Dehydration (principal); N39.0 Urinary tract infection, site not specified
CPT/HCPCS: 96361; 85025; 81001; 36415; 81025; 80053; 96374; 99284; J2405; J7030